=== PATIENT | male | born 1955 | race Two or more races ===

== ENCOUNTER 2022-10-04 15:02 | Emergency (ER) | payer MEDICARE, SELFPAY ==
[2022-10-04 15:03] VITALS: BP 168/62; PULSE 50; RESP 16; TEMP 36.6; O2SAT 98; BMI 30.2
--- NOTE | 2022-10-04 15:36 | PC.NURSE ---
ROUNDED ON PATIENT, VITALS OBTAINED PATIENT WAITING IN TRIAGE ROOM AT THIS TIME AWAITING A ROOM IN ED.
[2022-10-04 15:37] VITALS: BP 168/62; PULSE 50; RESP 14; TEMP 36.6; O2SAT 98
--- NOTE | 2022-10-04 16:03 | XR_ITS ---
FINAL REPORT CLINICAL HISTORY: left foot pain, pt states woke up and left foot was swollen, no known injury COMPARISON: None FINDINGS: LEFT FOOT: Three views of the left foot were obtained. There is no acute fracture or dislocation. There is a mild hallux valgus deformity. There is degenerative change of the first MTP. Small calcaneal spurs are noted. There is forefoot soft tissue swelling. IMPRESSION: Degenerative change and soft tissue swelling without acute bony abnormality. Reviewed, Interpreted and Dictated by Reymundo Garcia III, MD Transcribed by Sofi Guerra Authenticated and [facility]
--- NOTE | 2022-10-04 16:07 | PC.NURSE ---
notified rad of xray order
--- NOTE | 2022-10-04 16:09 | ED_ITS ---
Discharge Plan Disposition Patient Disposition: Home, Self-Care Prescriptions Prescriptions: New doxycycline hyclate 100 mg tablet 100 mg PO BID Qty: 14 0RF Referrals Follow up/Referrals: Provider,Referral, MD [Primary Care Provider] - See instructions Activity Restrictions/Add. Instructions Additional Instructions/Restrictions: Return for worsening pain swelling or any other concerns within the next 8 hours otherwise follow-up with your primary care physician within the next few days Clinical Impressions Clinical Impression: Cellulitis Discharge ED Provider: Salas Ramsey General Adult HPI General Chief complaint: PAIN Stated complaint: feet swelling Time Seen by Provider: 10/04/22 15:05 History of Present Illness HPI narrative: 66-year-old male presents with left foot pain redness and swelling for 1 day. He says he woke up for that. No fever no chills no abdominal pain nausea vomiting headache chest pain or any other emergent issues at this time. No history of gout. No trauma or injury. Redness is up to the midfoot. Related Data Previous Rx's Medication Instructions Recorded doxycycline hyclate 100 mg tablet 100 mg PO BID #14 tabs 10/04/22 Allergies Allergy/AdvReac Type Severity Reaction Status Date / Time NO KNOWN ALLERGIES Allergy Uncoded 03/11/17 15:32 [facility] Disclaimer: The information contained in this section may have been updated after the patient was seen, as this information can be updated by other users. Social History Smoking Status: Never smoker alcohol intake: current current occupational status: employed Travel in the last 8 weeks: Inside the [place] ROS Obtained: Yes All systems reviewed & no additional complaints except as d ocumented Constitutional Constitutional: Denies fatigue, Denies fever(s) and Denies headache(s) Eyes Eyes: Denies diplopia ENT Ears, Nose, Mouth, and Throat: Denies headache(s) Cardiovascular Cardiovascular: Denies diaphoresis and Denies dyspnea Respiratory Respiratory: Denies dyspnea Gastrointestinal Gastrointestingal: Denies coffee ground emesis Genitourinary Male Genitourinary: Denies flank pain Musculoskeletal Musculoskeletal: Denies joint swelling Integumentary/Breasts Skin/Breast: Reports redness and Denies rash Neurologic Neurologic: Denies headache(s) Endocrine Endocrine: Denies fatigue Hematologic/Lymphatic Henatologic/Lymphatic: Denies easy bleeding Allergic/Immunologic Allergic/Immunologic: Denies urticaria Physical Exam General General appearance: alert and in no apparent distress Eye Eye exam: Present PERRL and EOMI ENT ENT exam: Present normal exam and normal oropharynx Neck Neck exam: Present normal inspection Chest Chest inspection: Present symmetric chest wall rise Respiratory Respiratory exam: Present normal lung sounds bilaterally; Absent respiratory distress Cardiovascular Cardiovascular exam: Present regular rate and normal rhythm Abdominal Exam Abdominal exam: Present soft; Absent distention, tenderness, guarding, rebound, Rodas's sign or tenderness at McBurney's Point Rectal Exam Rectal exam: Present deferred Extremities Exam Extremities exam: Present other (Left midfoot redness mild swelling and warmth neurovascularly intact) Back Exam Back exam: Present normal inspection Neurological Exam Neurological exam: Present alert and oriented X3 Psychiatric Psychiatric exam: Present normal affect and normal mood Skin Skin exam: Present warm, dry and intact Lymphatic Lymphatic Findings: no adenopathy Medical Decision Making Medical Records Medical records reviewed: Yes I reviewed the patient's medical records. Khanh Inquiry Pt receiving controlled substance: No Khanh was queried for this patient: No Vital Signs: 10/04/22 15:37 10/04/22 15:03 Temperature 97.8 F 97.8 F Temperature Source Oral Oral Pulse Rate 50 L Pulse Rate [Left Radial] 50 L Respiratory Rate 14 16 Blood Pressure 168/62 H Blood Pressure [Right Arm] 168/62 H Blood Pressure Mean [Right Arm] 97 Blood Pressure Source [Right Arm] Automatic Cuff Blood Pressure Position [Right Arm] Sitting 02 Sat by Pulse Oximetry 98 98 Oxygen Delivery Method Room Air Room Air Lab Data Lab results reviewed: Yes I reviewed the patient's lab results. Lab Results 10/04/22 16:13: WBC 9.8, RBC 5.22, Hgb 15.2, Hct 46.0, MCV 88.0, MCH 29.1, MCHC 33.1, RDW 13.6, Plt Count 219, MPV 8.3, Neut % (Auto) 82.5 H, Lymph % (Auto) 11.5, [place] % (Auto) 5.2, Eos % (Auto) 0.7, Baso % (Auto) 0.2, Neut # (Auto) 8.0 H, Lymph # (Auto) 1.1, [place] # (Auto) 0.5, Eos # (Auto) 0.1, Baso # (Auto) 0.0, Sodium 137, Potassium 4.9, Chloride 104, Carbon Dioxide 26, Anion Gap 11.9, BUN 18, Creatinine 1.20, Estimated Creat Clear 69, Estimated GFR 60, Est GFR ( Amer) 73, Glucose 157 H, Uric Acid 8.5, Calcium 9.4, Total Bilirubin 0.8, AST 31, ALT 26, Alkaline Phosphatase 85, Total Protein 8.0, Albumin 4.6, Globulin 3.4 H, Albumin/Globulin Ratio 1.4 10/04/22 16:13 10/04/22 16:13 Orders (Tests/Meds): ORDERS Category Date Time Status Foot XR left minimum 3 views [XR foot LT min 3V] Stat Exams 10/04/22 16:03 Completed Complete Blood Count Auto Diff Stat Lab 10/04/22 16:13 Completed Comprehensive Metabolic Panel Stat Lab 10/04/22 16:13 Completed Uric Acid Stat Lab 10/04/22 16:13 Completed Medical Decision Narrative: 58-year-old female presents with left foot redness that began today. No concern for sepsis necrotizing soft tissue infection or other emergent pathology at this time. Screening x-ray to assess for trauma versus osteomyelitis. Besides infection possible etiology could include gout or other arthropathy. Sending uric acid white blood cell count and creatinine for further assessment Uric acid 8.5 within normal limits. X-ray without concerning findings. Plan to treat for possible cellulitis and discharge home Critical Care Time Critical Care Time Critical Care Time: No Attestation: On 10/04/22, the high probability of a clinically significant, sudden or life threatening deterioration of the following system(s) required my full and direct attention, intervention and personal management. The time I documented below is in addition to time spent performing reported procedures but includes the following listed in this critical care notation.
[2022-10-04 16:24] LABS: Basophils % 0.2 % (0.1-2.0); Eosinophils # 0.1 K/mm3 (0.0-0.4); Eosinophils % 0.7 % (0.1-12.0); Hemoglobin 15.2 g/dL (14.1-18.0); Lymphocytes # 1.1 K/mm3 (0.7-4.5); Lymphocytes % 11.5 % (10-50); Mean Corpuscular HGB Conc 33.1 g/dL (31.8-35.4); Mean Corpuscular Hemoglobin 29.1 pg (27.0-31.2); Mean Platelet Volume 8.3 fl (7.4-10.4); Monocytes # 0.5 K/mm3 (0.1-1.0); Monocytes % 5.2 % (1.7-9.3); Neutrophils % 82.5 % (37.0-80.0); Platelet Count 219 K/mm3 (142-424); Red Blood Count 5.22 M/mm3 (4.60-6.20); Red Cell Distribution Width 13.6 % (11.5-17.5); White Blood Count 9.8 K/mm3 (4.8-10.8)
[2022-10-04 16:30] LABS: Uric Acid 8.5 mg/dl (3.5-8.5)
[2022-10-04 16:31] LABS: Alanine Aminotransferase 26 U/L (12-78); Albumin Level 4.6 g/dl (3.5-5.0); Albumin/Globulin Ratio 1.4 (1.1-1.8); Alkaline Phosphatase 85 U/L (38-126); Anion Gap 11.9 mEq/L (5-15); Aspartate Amino Transferase 31 U/L (17-59); Bilirubin,Total 0.8 mg/dl (0.2-1.3); Blood Urea Nitrogen 18 mg/dl (9-20); Calcium 9.4 mg/dl (8.4-10.2); Carbon Dioxide 26 mmol/L (22.0-30.0); Chloride 104 mmol/L (98-107); Creatinine Clearance Estimated 69 mL/min (50-200); Estimated Glomerular Filt Rate 60 ml/min (>60); GFR (African American) 73 ML/MIN (>60); Globulin 3.4 g/dL (1.3-3.2); Glucose 157 mg/dl (74-100); Potassium 4.9 mmoL/L (3.5-5.1); Sodium 137 mmol/L (136-145)
[2022-10-04 17:16] VITALS: BP 152/92; PULSE 69; RESP 17; TEMP 36.7; O2SAT 98
== END 2022-10-04 17:18 | disposition home or self-care (01) ==
PROVIDERS: Emergency Provider Emergency Medicine
DX: L03.116 Cellulitis of left lower limb (principal); M79.672 Pain in left foot
CPT/HCPCS: 36415; 73630; 80053; 84550; 85025; 99284; 99285

== ENCOUNTER 2025-02-07 14:51 | Inpatient (IN) | payer MEDICARE, SELFPAY ==
[2025-02-07] VITALS (20 sets, daily range): BP systolic 100–156; BP diastolic 58–97; PULSE 35–84; RESP 18–24; TEMP 36.4–37.7; O2SAT 95–100; BMI 27.3
--- NOTE | 2025-02-07 14:49 | ECG_ITS ---
APPROVED REPORT Exam: Resting ECG HR:53 bpm ECG Measurements Heart Rate 53 AXES QRSd 150 QRS 116 QT 501 T -18 QTc 483 Conclusion SINUS RHYTHM WITH HIGH GRADE AV BLOCK INTRAVENTRICULAR CONDUCTION DELAY [130+ ms QRS DURATION] CRITICAL TEST RESULT UNCONFIRMED REPORT Electronically signed by : Calos Connor, 02/08/2025 15:00:42
--- NOTE | 2025-02-07 14:54 | PC.NURSE ---
1444- patient arrival to room 4 1446- patient wallet found, license used to identify patient. 1447- BGL 177 1449- 18G LAC 1454- 100 Succ given, 30etomidate given to intubate patient by Leoncio Nieves, EDMOND 1456- Pt intubated by dr. christensen 24 at the teeth, 7.5 et tube. Positive color change, equal chest rise/breath sounds. 1457- 1 mg of atropine by Leoncio Nieves rn per dr. christensen order BP 142/75, HR 46, o2 100%, RR 17
[2025-02-07 14:57] LABS: VBG HCO3 14.7 mmol/L (23-30); VBG PCO2 29.8 mmol/L (35-51); VBG PH 7.31 mmol/L (7.31-7.41); VBG PO2 67.3 mmol/L (28-40)
[2025-02-07 14:58] LABS: Lactate Venous 5.5 mmol/L (0.4-2.0)
--- NOTE | 2025-02-07 15:02 | CT_ITS ---
FINAL REPORT TECHNIQUE: NASCET technique utilized for stenosis evaluation. CLINICAL HISTORY: cardiac arrest FINDINGS: Patient is intubated. RIGHT CAROTID: There is a bovine arch present. No significant stenosis is seen of the cervical common or internal carotid artery. LEFT CAROTID: No significant stenosis seen of the cervical common or internal carotid artery. VERTEBRALS: The vertebrals are patent. No significant stenosis is present. IMPRESSION: No significant arterial abnormality. Reviewed, Interpreted and Dictated by Gautam Moctezuma MD Transcribed by Dalila Alvarez Authenticated and [facility]
--- NOTE | 2025-02-07 15:02 | CT_ITS ---
FINAL REPORT TECHNIQUE: Postcontrast axial images of the chest were performed in a CTA protocol. This study was performed with techniques to keep radiation doses as low as reasonably achievable, (ALARA). Individualized dose reduction technique using automated exposure control or adjustment of mA and/or kV according to the patient's size were employed. CLINICAL HISTORY: cardiac arrest FINDINGS: There is an ET tube in good position. The heart is normal in size. No adenopathy is identified. No pleural or pericardial effusion is identified. The thoracic aorta is normal in caliber with no focal aneurysm or dissection identified. There is no filling defect to suggest pulmonary embolism. Patchy bibasilar consolidation is seen, left greater than right with overlying atelectasis. There is no pneumothorax. The images of the upper abdomen are unremarkable. IMPRESSION: No evidence for PE on this exam. ET tube in good position. No pneumothorax. Patchy bibasilar consolidation with overlying atelectasis. Reviewed, Interpreted and Dictated by Gautam Moctezuma MD Transcribed by Dalila Alvarez Authenticated and [facility]
--- NOTE | 2025-02-07 15:02 | CT_ITS ---
FINAL REPORT TECHNIQUE: Axial CT images were performed through the head. Coronal reformatted images were submitted. This study was performed with techniques to keep radiation doses as low as reasonably achievable (ALARA). Individualized dose reduction techniques using automated exposure control or adjustment of mA and/or kV according to the patient's size were employed. CLINICAL HISTORY: cardiac arrest FINDINGS: There is localized encephalomalacia in the posterior left frontal lobe. The ventricles are normal in size. There is no evidence of hemorrhage. There is no mass or edema identified. There is no abnormal extra-axial fluid seen. The sinuses are well aerated. There is a scalp hematoma posteriorly overlying the left occipital region measuring 4.7 x 1.0 cm. No underlying fracture is seen. IMPRESSION: No acute intracranial process. Reviewed, Interpreted and Dictated by Gautam Moctezuma MD Transcribed by Dalila Alvarez Authenticated and [facility]
--- NOTE | 2025-02-07 15:02 | CT_ITS ---
FINAL REPORT TECHNIQUE: thin section axial CT with and without IV contrast supplemented with multiplanar 3-D reconstruction of the head. This study was performed with techniques to keep radiation doses as low as reasonably achievable, (ALARA)individualized dose reduction techniques using automated exposure control or adjustment of mA and/or kV according to the patient's size were employed. CLINICAL HISTORY: cardiac arrest FINDINGS: HEAD CT: Head is asymmetrically positioned in the gantry which somewhat limits exam sensitivity. The ventricles are normal in size. There is no evidence of hemorrhage. No masses are identified. No extra-axial fluid is seen. The sinuses are normal. CTA: The cranial circulation is unremarkable. There is no significant stenosis, aneurysm or occlusion. IMPRESSION: No acute process. Reviewed, Interpreted and Dictated by Gautam Moctezuma MD Transcribed by Dalila Alvarez Authenticated and . [facility]
[2025-02-07] MEDS: ETOMIDATE 40MG/20ML VIAL 30 MG IV (15:07)
[2025-02-07] MEDS: SUCCINYLCHOLINE 20MG/ML 10 ML MDV 100 MG IV (15:08)
[2025-02-07] MEDS: ATROPINE 1MG/10ML SYRINGE (CRASH CART) 1 MG IV (15:09)
--- NOTE | 2025-02-07 15:09 | HMH.EDGENADL ---
Discharge Plan Disposition Chief Complaint: Cardiac Arrest/CPR Prescriptions Prescriptions: No Action doxycycline hyclate 100 mg tablet 100 mg PO BID Qty: 14 0RF Referrals Follow up/Referrals: Provider,Referral, [Primary Care Provider, Medical] - See instructions Clinical Impressions Clinical Impression: Cardiac arrest, V-tach, Ventricular fibrillation Print Language Print Language: Serbian Discharge ED Provider: Jay Connor General Adult HPI General Chief complaint: Cardiac Arrest/CPR Stated complaint: Unresponsive Time Seen by Provider: 02/07/25 14:55 Mode of Arrival: EMS Source of Information: EMS Description of Symptoms (Recalled from ER Triage Doc. by RN): Pt arrives via EMS from [employer]. Pt had a witnessed cardiac arrest. CPR was initiated by bystanders. Pt was down for 5-10 mins. Initial cardiac rhythm was pulseless v-tach, patient was shocked 3 times. ROSC was obtained by patient arrival to [facility]. I/O in place, supraglottic airway in place. History of Present Illness HPI narrative: Patient is a 69-year-old brought in by EMS with cardiac arrest. We do not know anything about the patient's history as he had a witnessed arrest from bystanders who do not know anything about them either CPR was immediately initiated on scene by bystanders and performed for 5 or 10 minutes EMS arrived to scene patient was in V-fib which shocked subsequently in V. tach and shocked again with return of spontaneous circulation 1 round of ACLS was performed supraglottic airway was placed no further history able to be obtained prior to arrival patient arrived with a pulse and blood pressure. Related Data Previous Rx's ?Medication ?Instructions ?Recorded doxycycline hyclate 100 mg tablet 100 mg PO BID #14 tabs 10/04/22 Allergies Allergy/AdvReac Type Severity Reaction Status Date / Time NO KNOWN ALLERGIES Allergy Uncoded 03/11/17 15:32 [facility] Disclaimer: The information contained in this section may have been updated after the patient was seen, as this information can be updated by other users. Social History (Updated 10/04/22 @ 17:10 by Salas Ramsey MD) Smoking Status: Unknown if ever smoked alcohol intake: current current occupational status: employed Travel in the last 8 weeks?: Inside the [place] Have you lived/traveled outside US in past 30 days?: No Contact w/someone who lives/traveled outside US past 30 days?: No Exposure to someone with infectious disease in past 14 days?: No Do you have a fever (greater than 100.4 F or 38 C)?: No Have you tested positive for COVID-19?: No Exposed to someone with COVID-19 in past 14 days?: No Do you have a sore throat?: No Do you have a cough?: No Do you have any weakness?: No Do you have any diarrhea?: No Are you experiencing any unusual bleeding?: No Do you have any muscle aches/pain?: No Do you have any abdominal pain?: No Are you experiencing loss of taste or smell?: No ROS Obtained: Yes All systems reviewed & no additional complaints except as documented Physical Exam General General appearance: other (Intubated with supraglottic airway) Respiratory Respiratory exam: Present normal lung sounds bilaterally Cardiovascular Cardiovascular exam: Present regular rate Neurological Exam Neurological exam: Present other (Patient is waking up eyes open does not following with his eyes not localizing any painful stimuli or withdrawing from painful stimuli patient is currently intubated) Expanded Neurological Exam Coma scale eye opening: Spontaneous Coma scale motor response: None Coma scale verbal response: None Coma scale total: 6 Medical Decision Making Medical Records Screening: Per USPSTF and CDC recommendations, given the prevalence of disease in our region, it is our hospital?s policy to screen for HIV and viral Hepatitis for all patients aged 18 and over and those with ongoing risk factors. Khanh Inquiry Pt receiving controlled substance: No Vital Signs: 02/07/25 14:48 02/07/25 14:56 02/07/25 15:00 Temperature 98.0 F Temperature Source Temporal Artery Scan Pulse Rate Pulse Rate [Right] 44 L Respiratory Rate 21 24 Blood Pressure Blood Pressure [Right Arm] 156/97 H Blood Pressure Mean [Right Arm] 116 Blood Pressure Source Blood Pressure Position 02 Sat by Pulse Oximetry 99 100 97 Oxygen Delivery Method Trach Collar/ Tube Fraction of Inspired Oxygen 60 02/07/25 15:11 Temperature Temperature Source Pulse Rate 40 L Pulse Rate [Right] Respiratory Rate 20 Blood Pressure 133/80 Blood Pressure [Right Arm] Blood Pressure Mean [Right Arm] Blood Pressure Source Automatic Cuff Blood Pressure Position Supine 02 Sat by Pulse Oximetry 95 Oxygen Delivery Method Trach Collar/ Tube Fraction of Inspired Oxygen Lab Data Lab Results 02/07/25 14:50: WBC 11.9 H, RBC 4.95, Hgb 14.8, Hct 43.9, MCV 88.7, MCH 29.9, MCHC 33.7, RDW 12.5, Plt Count 220, MPV 11.2 H, Neut % (Auto) 53.8, Lymph % (Auto) 37.6, [place] % (Auto) 4.9, Eos % (Auto) 1.4, Baso % (Auto) 0.4, Neut # (Auto) 6.4, Lymph # (Auto) 4.5, [place] # (Auto) 0.6, Eos # (Auto) 0.2, Baso # (Auto) 0.1, Sodium 139, Potassium 3.4 L, Chloride 106, Carbon Dioxide 20 L, Anion Gap 16.4 H, BUN 19, Creatinine 1.20, Estimated Creat Clear 65, Estimated GFR 60, Est GFR ( Amer) 72, Glucose 167 H, Calcium 8.9, Total Bilirubin 1.0, AST 145 H, ALT 120 H, Alkaline Phosphatase 89, Troponin I 0.08 H, Total Protein 7.7, Albumin 4.7, Globulin 3.0, Albumin/Globulin Ratio 1.6 02/07/25 14:55: VBG pH 7.31, VBG pCO2 29.8 L, VBG pO2 67.3 H, VBG HCO3 14.7 L, VBG Total CO2 15.7 L, VBG O2 Saturation 92.0 H, VBG Base Excess -11.5 L, VBG Lactic Acid 5.5 H 02/07/25 14:50 02/07/25 14:50 Orders (Tests/Meds): ED MEDICATIONS Generic Name Dose Route Start Last Admin Trade Name Freq PRN Reason Stop Dose Admin Fentanyl Citrate 12.5 mcg 02/07/25 15:08 Fentanyl 12.5mcg/0.25ml IV 03/09/25 15:07 [id number] PRN Achieve CPOT Score <3 Lactated Ringer's 1,000 mls @ 999 mls/hr 02/07/25 15:15 02/07/25 15:10 Lactated Ringer's 1000 Ml Bag IV 02/07/25 16:15 999 mls/hr .Q1H1M JUDY Administration Fentanyl Citrate 1,000 mcg/ 100 mls @ 2.5 mls/hr 02/07/25 15:15 02/07/25 15:32 Sodium Chloride IV 03/09/25 15:14 25 mcg/hr .Q24H JUDY 2.5 mls/hr Protocol Administration 25 MCG/HR Sodium Chloride 10 ml 02/07/25 15:26 02/07/25 15:27 Sodium Chloride 0.9% 10ml Syr (Rad Only) IV 03/09/25 15:25 10 ml NEEDED PRN Administration Maintain IV Site Discontinued Medications Generic Name Dose Route Start Last Admin Trade Name Shiloh PRN Reason Stop Dose Admin Atropine Sulfate 1 mg 02/07/25 15:06 02/07/25 15:09 Atropine 1mg/10ml Syringe (Crash Cart) IV 02/07/25 15:07 1 mg ONCE ONE Administration Diazepam 5 mg 02/07/25 15:12 02/07/25 15:10 Diazepam 10mg/2ml Syringe IV 02/07/25 15:13 5 mg ONCE ONE Administration Etomidate 30 mg 02/07/25 15:03 02/07/25 15:07 Etomidate 40mg/20ml Vial IV 02/07/25 15:04 30 mg ONCE ONE Administration Iopamidol 160 ml 02/07/25 15:26 02/07/25 15:27 Iopamidol-370 (76%);100ml Bottle IV 02/07/25 15:27 160 ml ONCE ONE Administration Sodium Chloride 50 ml 02/07/25 15:26 02/07/25 15:27 0.9 % Sodium Chloride 50 Ml Vial IV 02/07/25 15:27 50 ml ONCE ONE Administration Succinylcholine Chloride 100 mg 02/07/25 15:05 02/07/25 15:08 Succinylcholine 20mg/Ml 10 Ml Mdv IV 02/07/25 15:06 100 mg ONCE ONE Administration ORDERS Category Date Time Status CT angio chest PE protocol Stat Cat Scan 02/07/25 15:[address] angio head Stat Cat Scan 02/07/25 15:[address] angio neck Stat Cat Scan 02/07/25 15:[address] head/brain wo con Stat Cat Scan 02/07/25 15:02 Taken CBC w/Auto Diff [Complete Blood Count Auto Diff] Stat Lab 02/07/25 14:50 Completed CMP [Comprehensive Metabolic Panel] Stat Lab 02/07/25 14:50 Completed PT/PTT Stat Lab 02/07/25 14:50 Received Trop I [Troponin I] Stat Lab 02/07/25 14:50 Completed Troponin I Q3H Lab 02/07/25 18:15 Ordered Troponin I Q3H Lab 02/07/25 21:15 Ordered VBG [Venous Blood Gas] Stat RT 02/07/25 14:55 Completed Venous Blood Gas Routine RT 02/07/25 15:00 Received Medical Decision Narrative: Patient with above history and physical arrived after cardiac arrest with a shockable rhythm confirmed with rhythm strips that were printed out with V-fib and V. tach. Most likely a cardiac event. Patient is bradycardic from a ventricular standpoint and repeat twelve-lead shows ventricular rate of 53 with high-grade AV block possibly with complete heart block atrial flutter is present no obvious STEMI noted. Patient's not doing much neurologically but is waking up which is good prognostically also blood gas showed a pH is near 7.3 which is excellent. Differential includes complete heart block with a bradycardic event STEMI with reperfusion pulmonary embolism stroke etc. Will get quick scans after discussing the case with Dr. Craig likely will take the patient to the [facility] shortly. Patient was intubated and supraglottic airway was transition to an endotracheal tube. 7-1/2 tube was placed please see intubation note. Reassessment 340 CT scans of the head neck and chest were performed I personally interpreted specifically I do not see any evidence of an LVO intracranial hemorrhage or large central PE. I discussed the case further with Dr. Craig who will take the patient to the [facility] for a transvenous pacer as well as for angiogram to see if there is anything obvious going on with regards to other vascular pathology. Working diagnosis is most likely a bradycardic rhythm sent into cardiac arrest secondary to complete heart block. Procedures Intubation Mallampati Score:: Class I Time out performed: No sedative: Etomidate Mg Given: 30 paralytic: Succinylcholine Mg Given: 150 Laryngoscope: Kartik (3) Assist Device Used: other (MAG3 GlideScope) ET Tube Size: 7.5 ET Tube Uncuffed: Yes Tube Secured Depth (cm): 22 Tube Secured Location: teeth Tube Placement Confirmation: visualized tube passing through cords, equal breath sounds bilaterally and confirmation by capnometry Patient Tolerated Procedure: no complications Critical Care Critical Care Time Critical Care Time: Yes Attestation: On 02/07/25, the high probability of a clinically significant, sudden or life threatening deterioration of the following system(s) required my full and direct attention, intervention and personal management. The time I documented below is in addition to time spent performing reported procedures but includes the following listed in this critical care notation. Total Time Total Critical Care Time: 65
[2025-02-07] MEDS: LACTATED RINGERS 1000ML 1,000 ML 999 ML IV (15:10)
[2025-02-07] MEDS: diazePAM 10MG/2ML SYRINGE 5 MG IV ×2 (15:10→15:39)
[2025-02-07 15:13] LABS: Albumin Level 4.7 g/dl (3.5-5.0); Chloride 106 mmol/L (98-107); Sodium 139 mmol/L (136-145)
[2025-02-07 15:14] LABS: Potassium 3.4 mmoL/L (3.5-5.1)
--- NOTE | 2025-02-07 15:14 | PC.NURSE ---
1509- temp sensing kennedy inserted by Laura Catherine under this RN's supervision, UA collected and sent to lab. 1510- 5mg given by Ayaan Melendez RN per Dr. Connor order 1515- Pt transferred to CT by De[facility] and RT on zoll monitor.
[2025-02-07 15:16] LABS: Alanine Aminotransferase 120 U/L (12-78); Albumin/Globulin Ratio 1.6 (1.1-1.8); Alkaline Phosphatase 89 U/L (38-126); Anion Gap 16.4 mEq/L (5-15); Aspartate Amino Transferase 145 U/L (17-59); Bilirubin,Total 1.0 mg/dl (0.2-1.3); Blood Urea Nitrogen 19 mg/dl (9-20); Carbon Dioxide 20 mmol/L (22.0-30.0); Creatinine Clearance Estimated 65 mL/min (50-200); Creatinine,Serum 1.20 mg/dl (0.66-1.25); Estimated Glomerular Filt Rate 60 ml/min (>60); GFR (African American) 72 ML/MIN (>60); Globulin 3.0 g/dL (1.3-3.2); Hematocrit 43.9 % (42.0-52.0); Hemoglobin 14.8 g/dL (14.1-18.0); Immature Granulocytes % 1.9 %; Mean Corpuscular HGB Conc 33.7 g/dL (31.8-35.4); Mean Corpuscular Hemoglobin 29.9 pg (27.0-31.2); Mean Corpuscular Volume 88.7 fl (80-94); Nucleated Red Blood Cells % 0 %; Platelet Count 220 K/mm3 (142-424); Red Blood Count 4.95 M/mm3 (4.60-6.20); Red Cell Distribution Width-SD 40.1 fL; Total Protein,Serum 7.7 g/dl (6.3-8.2); White Blood Count 11.9 K/mm3 (4.8-10.8)
[2025-02-07 15:17] LABS: Calcium 8.9 mg/dl (8.4-10.2); Glucose 167 mg/dl (74-100)
[2025-02-07] MEDS: SODIUM CHLORIDE 0.9% 10ML SYR (RAD ONLY) 10 ML IV (15:27)
[2025-02-07] MEDS: IOPAMIDOL-370 (76%);100ML BOTTLE 160 ML IV (15:27)
[2025-02-07] MEDS: 0.9 % SODIUM CHLORIDE 50 ML VIAL IV (15:27)
[2025-02-07 15:28] LABS: Troponin I 0.08 ng/ml (0.00-0.034)
[2025-02-07 15:29] LABS: Activated Partial Thrombo Time 25.7 seconds (22.8-30.6); INR 1.07 (0.9-1.1); Prothrombin Time 11.8 seconds (10.1-12.5)
[2025-02-07] MEDS: FENTANYL CITRATE/PF 1,000 MCG in 0.9 % SODIUM CHLORIDE 80 ML 2.5 MCG IV (15:32)
--- NOTE | 2025-02-07 15:38 | IR_ITS ---
APPROVED REPORT Patient Location: [facility] Coordinator: RADHA Vega RT (R) PROCEDURES Left heart catheterization Left ventriculogram Selective coronary angiogram Right femoral vein central access Placement of temporary transvenous pacemaker into the right ventricular apex INDICATION Sudden cardiac survivor, Third-degree heart block, Bradycardia Informed consent was obtained prior to the procedure. COMPLICATIONS None TECHNIQUE 1% lidocaine used anesthetize the right groin the right femoral artery and vein were accessed via the Salinger technique and a 4 German 5 German sheath were placed in the artery vein respectively. A temporary transvenous pacemaker was floated under fluoroscopic guidance into the right ventricular apex and placed in the apex. Pacemaker was placed at a heart rate of 80. The RV was capturing at 2 mV therefore the pacemaker was placed at 4 mV with a rate of 80. Following this the JL 4 JR4 catheter used to perform selective coronary angiography. At the end of the procedure both sheaths were taped into place patient was transferred to the intensive care unit in guarded condition. INTERROGATION Angiographic results Left main artery is normal Left anterior descending artery has mild 10% luminal regularities in the proximal and mid vessel Circumflex artery is normal Right coronary artery is dominant and has proximal 20% stenosis with a mid vessel concentric 40% stenosis NARANJO ventriculogram not performed LVEDP not measured IMPRESSION Nonocclusive coronary artery disease with moderate disease in the mid dominant right coronary artery Successful placement of temporary transvenous pacemaker into the right ventricular apex PLAN 1. Start heparin drip overnight 2. Keep right femoral sheath in place for blood gas and monitoring blood pressure 3. Maintain transcutaneous temporary pacemaker as backup in the event the transvenous pacemaker dislodges 4. Keep sedate overnight 5. 1 g vancomycin IV this evening 6. Plan AICD placement in the morning due to sudden cardiac survivor 7. Will also plan KIMMY following AICD placement and if left atrial appendage is clear we will plan to cardiovert to maintain sinus rhythm 8. LDL less than 55 to be achieved with high intensity statin Electronically signed by : Lan Craig MD 02/07/2025 17:03:39
--- NOTE | 2025-02-07 15:40 | PC.NURSE ---
1539 5mg valium given by this rn Per dr. christensen order
--- NOTE | 2025-02-07 15:43 | PC.NURSE ---
Pt belongings placed into bag. Pt noted to have a watch, iphone, wallet, hat, snicker bar, pants, shirt, shoes, belt
[2025-02-07 15:46] LABS: ABG HCO3 16.4 mmhg (22.0-26.0); ABG PCO2 38.2 mmhg (35.0-45.0); ABG PH 7.25 mmol/L (7.35-7.45); ABG PO2 112.2 mmhg (80-100); ABG TCO2 17.5 mmhg (23-27)
[2025-02-07 15:47] LABS: Lactate Arterial 3.9 mmol/L (0.4-2.0)
--- NOTE | 2025-02-07 15:49 | PC.NURSE ---
1546 Dr. Craig to bedside. 1549 Pt transferred to optical laboratory manager by Lashae Stubbs RN and RT on zoll. Pt belongings sent with patient
[2025-02-07 16:15] LABS: ABG HCO3 17.1 mmhg (22.0-26.0); ABG PCO2 30.9 mmhg (35.0-45.0); ABG PH 7.36 mmol/L (7.35-7.45); ABG PO2 109.2 mmhg (80-100); ABG TCO2 18.1 mmhg (23-27); PEEP 5
[2025-02-07 16:16] LABS: Source ART LINE
--- NOTE | 2025-02-07 16:51 | EXP.HP ---
History of Present Illness *Admission Date: 02/07/25 *Reason for visit:: cardiac arrest *History of present illness: 69-year-old male who had a witnessed arrest at [employer]. Resuscitation was performed for about 10 minutes. Received 2-3 shocks from defibrillator. Intubated prior to arrival. Had supraglottic airway. Found to be bradycardic. Taken urgently to Technical Research Scientist for evaluation of cardiac arrest and complete heart block. Discussed case with cardiology after procedure, patient currently has transvenous pacing for his heart block. Sedated and intubated at this time. Will need admission to ICU for further management. Remainder of history known as follows: Appears to have bioprosthetic aortic valve. Has scar on lower abdomen consistent with previous appendectomy. Unable to obtain any further history or review of systems. [facility] Disclaimer: The information contained in this section may have been updated after the patient was seen, as this information can be updated by other users. Social History (Updated 02/07/25 @ 19:30 by America Olea RN) Smoking Status: Unknown if ever smoked alcohol intake: current current occupational status: employed Travel in the last 8 weeks?: Inside the [place] Have you lived/traveled outside US in past 30 days?: No Contact w/someone who lives/traveled outside US past 30 days?: No Exposure to someone with infectious disease in past 14 days?: No Do you have a fever (greater than 100.4 F or 38 C)?: No Have you tested positive for COVID-19?: No Exposed to someone with COVID-19 in past 14 days?: No Do you have a sore throat?: No Do you have a cough?: No Do you have any weakness?: No Do you have any diarrhea?: No Are you experiencing any unusual bleeding?: No Do you have any muscle aches/pain?: No Do you have any abdominal pain?: No Are you experiencing loss of taste or smell?: No Review of Systems Review of Systems Review of systems:: unable to obtain (intubated) Meds Home Medications and Allergies Home Medications ?Medication ?Instructions ?Recorded ?Confirmed ?Type No Known Home Medications 02/07/25 02/07/25 History New Prescriptions to Start Prescriptions: Allergies Allergy/AdvReac Type Severity Reaction Status Date / Time NO KNOWN ALLERGIES Allergy Uncoded 03/11/17 15:32 Exam Data for Last 24 hours Vital signs and Labs for Last 24 Hours: Temp Pulse Resp BP Pulse Ox O2 Del Method FiO2 98.2 F 35 L 18 113/58 L 95 Mechanical Ventilation 60 02/07/25 15:49 02/07/25 15:49 02/07/25 15:49 02/07/25 15:49 02/07/25 15:11 02/07/25 15:49 02/07/25 15:00 Laboratory Results - last 24 hr 02/07/25 14:50: WBC 11.9 H, RBC 4.95, Hgb 14.8, Hct 43.9, MCV 88.7, MCH 29.9, MCHC 33.7, RDW 12.5, Plt Count 220, MPV 11.2 H, Neut % (Auto) 53.8, Lymph % (Auto) 37.6, [place] % (Auto) 4.9, Eos % (Auto) 1.4, Baso % (Auto) 0.4, Neut # (Auto) 6.4, Lymph # (Auto) 4.5, [place] # (Auto) 0.6, Eos # (Auto) 0.2, Baso # (Auto) 0.1, PT 11.8, INR 1.07, APTT 25.7, Sodium 139, Potassium 3.4 L, Chloride 106, Carbon Dioxide 20 L, Anion Gap 16.4 H, BUN 19, Creatinine 1.20, Estimated Creat Clear 65, Estimated GFR 60, Est GFR ( Amer) 72, Glucose 167 H, Calcium 8.9, Total Bilirubin 1.0, AST 145 H, ALT 120 H, Alkaline Phosphatase 89, Troponin I 0.08 H, Total Protein 7.7, Albumin 4.7, Globulin 3.0, Albumin/Globulin Ratio 1.6 02/07/25 14:55: VBG pH 7.31, VBG pCO2 29.8 L, VBG pO2 67.3 H, VBG HCO3 14.7 L, VBG Total CO2 15.7 L, VBG O2 Saturation 92.0 H, VBG Base Excess -11.5 L, VBG Lactic Acid 5.5 H 02/07/25 15:43: ABG pH 7.25 L, ABG pCO2 38.2, ABG pO2 112.2 H, ABG HCO3 16.4 L, ABG Total CO2 17.5 L, ABG O2 Saturation 98, ABG Base Excess -10.9 L, ABG Lactate 3.9 H 02/07/25 16:12: Specimen Source Art line, ABG pH 7.36, ABG pCO2 30.9 L, ABG pO2 109.2 H, ABG HCO3 17.1 L, ABG Total CO2 18.1 L, ABG O2 Saturation 98, ABG Base Excess -8.3 L, Bertin Test Patient unable, Vent Rate 20, Tidal Volume 440, PEEP 5 I & O for Last 24 hours: Intake & Output 02/04/25 02/05/25 02/06/25 02/07/25 23:59 23:59 23:59 23:59 Weight 81.647 kg Constitutional Constitutional: mild distress, average body habitus, chronically ill appearing and cooperative *Routine HEENT Exam Head: Present normocephalic Eye: Present EOMI and PERRL ENT: Present mucous membranes moist *Routine Neck Exam Neck: Present supple; Absent lymphadenopathy Routine Chest/Breast/Axilla Exam Comments: Well-healed sternal scar *Routine Respiratory Exam Respiratory: Present patient mechanically ventilated and CTA bilaterally; Absent rhonchi, wheezes or crackles *Routine Cardiovascular Exam Cardiovascular: Present RRR and murmur (Systolic) Comments: V-paced *Routine Abdominal Exam Abdominal: Present soft and normoactive bowel sounds; Absent tenderness *Routine Rectal Exam Rectal:: deferred *Routine Genitalia Exam Genitalia:: deferred *Routine Extremities Exam Extremities: Absent cyanosis, clubbing or edema Comments: 1 IV in left AC, puncture from IO in left fang *Routine Skin Exam Skin: Present intact and warm; Absent rash Comments: Scar right lower abdomen *Routine Neurological Exam Neurological: Present altered mental status (sedated) and moving all extremities (spontaneous) Assessment and Plan *Assessment and plan (1) Ventricular fibrillation: Status: Acute Category: Medical Code(s): I49.01 - Ventricular fibrillation (2) Cardiac arrest: Status: Acute Category: Medical Code(s): I46.9 - Cardiac arrest, cause unspecified (3) Complete heart block: Status: Acute Category: Medical Code(s): I44.2 - Atrioventricular block, complete (4) On mechanically assisted ventilation: Status: Acute Category: Medical Code(s): Z99.11 - Dependence on respirator [ventilator] status (5) NSTEMI (non-ST elevated myocardial infarction): Status: Acute Category: Medical Code(s): I21.4 - Non-ST elevation (NSTEMI) myocardial infarction (6) Atrial flutter: Status: Acute Category: Medical Code(s): I48.92 - Unspecified atrial flutter (7) History of aortic valve replacement with bioprosthetic valve: Status: Acute Category: Surgical Code(s): Z95.3 - Presence of xenogenic heart valve Plan Mr. Burns is a 69-year-old male who had a witnessed arrest at the grocery store. He was resuscitated by arrival to the ER. Found to be in complete heart block with NSTEMI. Patient taken urgently to the Technical Research Scientist for intervention with placement of transcutaneous pacer. Case discussed with ER physician and first grade teacher, request admission for further management after placement of pacemaker. I decided to admit to the ICU. Patient is currently intubated on mechanical ventilation, being externally paced, in critical condition. Sedated with propofol and fentanyl. High risk for decompensation and . Problems addressed as follows: Cardiac arrest due to ventricular fibrillation with complete heart block On mechanical ventilation Type II NSTEMI due to strain of the wrist and ischemia A-flutter Bioprosthetic aortic valve -Witnessed arrest. Achieved resuscitation. Found to be in heart block per review of EKG. Currently transvenous paced. Continue pacing at 80 bpm. Cardiology to reevaluate in the morning for placement of pacemaker and AICD - Plan for KIMMY in the morning - Will consider cardioversion with his A-flutter - Anticoagulate with Lovenox 1 mg/kg twice daily - Monitor on telemetry - Currently intubated on mechanical ventilation due to arrest. Will maintain mechanical ventilation due to need for KIMMY and placement of pacer/defibrillator in the morning. - Continue analgo-sedation with propofol and fentanyl. RASS goal -2 given placement of transvenous pacer and risk of dislodgment of patient has significant movement, currently on minimal settings. Pulmonology consulted to assist with care and management. Will consider attempting extubation after placement of pacemaker as patient has no appreciable underlying lung disease. - Initial troponin 0.08. Repeat troponin greater than 3. Consistent with NSTEMI from strain of her wrist. - Scans of chest showed no PE on CTA. Patient had normal pH of 7.3. - Vancomycin empirically to decrease risk for infection given indwelling trans venous pacer wires. - Initial labs with white count of 13, hemoglobin 14, likely D marginalization from the stress of his arrest. Kidney function normal with BUN 20, creatinine 1.0. Hemoglobin A1c 8.3, TSH normal at 2.9. Repeat CBC, CMP, magnesium ordered for the morning. Full code N.p.o. Therapeutic Lovenox
--- NOTE | 2025-02-07 18:09 | PC.NURSE ---
no PT consults placed at this time due to being on mechanical ventilation
--- NOTE | 2025-02-07 18:35 | PC.NURSE ---
Attempted to call patient's next of kin, no answer and no voicemail set up at this time.
[2025-02-07 18:39] LABS: Hematocrit 40.4 % (42.0-52.0); Hemoglobin 14.1 g/dL (14.1-18.0); Immature Granulocytes % 0.5 %; Mean Corpuscular HGB Conc 34.9 g/dL (31.8-35.4); Mean Corpuscular Hemoglobin 29.8 pg (27.0-31.2); Mean Corpuscular Volume 85.4 fl (80-94); Nucleated Red Blood Cells % 0 %; Platelet Count 166 K/mm3 (142-424); Red Blood Count 4.73 M/mm3 (4.60-6.20); Red Cell Distribution Width-SD 38.6 fL; White Blood Count 13.3 K/mm3 (4.8-10.8)
[2025-02-07 18:55] LABS: Anion Gap 11.3 mEq/L (5-15); Blood Urea Nitrogen 20 mg/dl (9-20); Calcium 9.1 mg/dl (8.4-10.2); Carbon Dioxide 19 mmol/L (22.0-30.0); Chloride 108 mmol/L (98-107); Creatinine Clearance Estimated 78 mL/min (50-200); Creatinine,Serum 1.00 mg/dl (0.66-1.25); Estimated Glomerular Filt Rate 74 ml/min (>60); GFR (African American) 89 ML/MIN (>60); Glucose 120 mg/dl (74-100); Potassium 4.3 mmoL/L (3.5-5.1); Sodium 134 mmol/L (136-145)
[2025-02-07 18:59] LABS: Reflex Lactic Add Lactic Reflex
[2025-02-07 19:03] LABS: PTT Heparin (inpatient only) 24.8 Seconds (50-75)
--- NOTE | 2025-02-07 19:10 | XR_ITS ---
PROCEDURE INFORMATION: Exam: XR Chest Exam date and time: 02/07/2025 7:22 PM Age: 69 years old Clinical indication: Device placement; Other: Et tube placement, post code TECHNIQUE: Imaging protocol: Radiologic exam of the chest. Views: 1 view. COMPARISON: CT ANGIO CHEST PE PROTOCOL 02/07/2025 3:26 PM FINDINGS: Tubes, catheters and devices: ET tube in good position. Lungs: Lungs are hypoinflated. Pleural spaces: Unremarkable. No pleural effusion. No pneumothorax. Heart/Mediastinum: Unremarkable. No cardiomegaly. Prior median sternotomy. Bones/joints: Prior median sternotomy. IMPRESSION: ET tube in good position. Lungs are hypoinflated.
[2025-02-07 19:23] LABS: Troponin I 3.15 ng/ml (0.00-0.034)
[2025-02-07 19:33] LABS: Lactic Acid Follow Up (RFLX 1) 1.3 mmol/L (0.7-2.1)
[2025-02-07 19:37] LABS: Hemoglobin A1C 5.3 % (4.0-6.0)
[2025-02-07 21:39] LABS: Thyroid Stimulating Hormone 2.92 uIU/mL (0.465-4.68)
[2025-02-07] MEDS: PANTOPRAZOLE 40MG VIAL 40 MG IV (21:44)
[2025-02-07] MEDS: FENTANYL CITRATE/PF 1,000 MCG in 0.9 % SODIUM CHLORIDE 80 ML 5 MCG IV (22:50)
--- NOTE | 2025-02-07 22:59 | PC.NURSE ---
At 2240- I called [facility], and spoke to Konstantin about an issue with the Fentanyl order. The previous shift had D/C the order that the titrate medication had been scanned on. The active order was listed as not given. [facility] (Konstantin) was able to fix the order however, the bag would not scan. It is charted the same bag is still running.
[2025-02-07] MEDS: IPRATROPIUM/ALBUTEROL 3 ML NEB IH (23:21)
[2025-02-08] VITALS (44 sets, daily range): BP systolic 88–137; BP diastolic 53–81; PULSE 63–89; RESP 16–24; TEMP 36.3–37.7; O2SAT 96–100; BMI 27.5
--- NOTE | 2025-02-08 | IR_ITS ---
APPROVED REPORT Patient Location: Inpatient Glass Lathe Operator: Jeferson Abad RT (R) PROCEDURES 1. Pocket formation for AICD. 2. Placement of atrial sensing and pacing coil into the right atrial appendage. 3. Placement of a ventricular sensing, pacing and shocking coil in the right ventricular apex. 4. Permanent AICD placement. 5. Removal of temporary transvenous pacemaker INDICATION Sudden cardiac survivor, Secondary prevention for ventricular fibrillation, Third-degree AV block, Patient had temporary transvenous pacemaker which required removal, Informed consent was obtained prior to the procedure. COMPLICATIONS None Estimated Blood Loss: Less than 10 mls TECHNIQUE 1% Lidocaine with epinephrine used to anesthetized the left anterior aspect of the chest. Scalpel was used to make the initial cutaneous incision while electrocautery was used to dissect down tinto the fascia. The fascia was lifted off the pectoralis muscle and digitally manipulated creating a pocket for the defibrillator. The patient was then placed in Trendelenburg position and the subclavian vein was accessed 2 times via the Selinger technique. A 8 Latvian sheath was placed under fluoroscopic guidance into the subclavian vein. The dilator was removed from the sheath. Using fluoroscopic guidance, the ventricular lead was placed into the right ventricular apex, screwed and secured into place. Electronic interrogation proved acceptable thresholds and voltage within the lead. Using 3-0 silk, the ventricular lead was then secured into place and sheath peeled away. A 6 Latvian fresh sheath and dilator was placed over the existing wire. Using fluoroscopic guidance, the atrial lead was then placed into the right atrial appendage and screwed and secured in place. Electrical interrogation demonstrated acceptable thresholds and voltage number. The atrial lead was then secured into place using 3-0 silk and sheath peeled away. 1 gram of Ancef was used to flush the pocket. All 3 leads were connected to generator and tested via computer. The defibrillator then secured to the fascia. Monocryl was used to close the subcutaneous layers while merlyn were used to close the cutaneous layer. A pressure dressing was placed and the patient was transferred to the postop holding area in stable condition for postoperative care. After the shocking coil was placed into the right ventricular apex and thresholds were obtained under fluoroscopic guidance the temporary transvenous pacemaker was removed from the right groin and right ventricular apex INTERROGATION Generator Model number: [id number] Generator Serial number: [id number] Atrial lead model number: [id number] Atrial lead serial number: [id number] P-wave: 2.1mV Impedance: 430ohms Threshold: 0.5V@0.5ms Right Ventricular lead model number: [id number] Right Ventricular lead serial number: [id number] R-wave: Impedance: 490ohms Threshold: 0.7V@0.5ms Pacing Parameters: Mode: DDDR Base/Max Track:60 ppm / 130 ppm No diaphragmatic stimulation at 10 volts. IMPRESSION 1. Successful pocket formation for AICD. 2. Successful placement of atrial sensing and pacing coil into the right atrial appendage. 3. Successful placement of a ventricular sensing, pacing and shocking coil in the right ventricular apex. 4. Successful permanent AICD placement. 5. Successful removal of temporary transvenous pacemaker PLAN 1. Post op wound care Electronically signed by : Lan Craig MD 02/09/2025 09:27:31
[2025-02-08] MEDS: VANCOMYCIN CONSULT REQUEST 1 EACH NOTAPPLIC (00:26)
[2025-02-08] MEDS: VANCOMYCIN/WATER FOR INJ (PEG) 1.75 GM/350 ML PIGGYBACK IV (01:32)
[2025-02-08 05:43] LABS: Hematocrit 41.4 % (42.0-52.0); Hemoglobin 13.6 g/dL (14.1-18.0); Immature Granulocytes % 0.4 %; Mean Corpuscular HGB Conc 32.9 g/dL (31.8-35.4); Mean Corpuscular Hemoglobin 28.7 pg (27.0-31.2); Mean Corpuscular Volume 87.3 fl (80-94); Nucleated Red Blood Cells % 0 %; Platelet Count 158 K/mm3 (142-424); Red Blood Count 4.74 M/mm3 (4.60-6.20); Red Cell Distribution Width-SD 41.1 fL; White Blood Count 10.2 K/mm3 (4.8-10.8)
[2025-02-08 05:54] LABS: Alanine Aminotransferase 115 U/L (12-78); Albumin Level 4.1 g/dl (3.5-5.0); Albumin/Globulin Ratio 1.6 (1.1-1.8); Alkaline Phosphatase 82 U/L (38-126); Anion Gap 12.2 mEq/L (5-15); Aspartate Amino Transferase 124 U/L (17-59); Bilirubin,Total 0.7 mg/dl (0.2-1.3); Blood Urea Nitrogen 23 mg/dl (9-20); Calcium 8.7 mg/dl (8.4-10.2); Carbon Dioxide 18 mmol/L (22.0-30.0); Chloride 111 mmol/L (98-107); Creatinine Clearance Estimated 72 mL/min (50-200); Creatinine,Serum 1.10 mg/dl (0.66-1.25); Estimated Glomerular Filt Rate 66 ml/min (>60); GFR (African American) 80 ML/MIN (>60); Globulin 2.5 g/dL (1.3-3.2); Glucose 128 mg/dl (74-100); Magnesium 2.3 mg/dl (1.6-2.3); Potassium 4.2 mmoL/L (3.5-5.1); Sodium 137 mmol/L (136-145); Total Protein,Serum 6.6 g/dl (6.3-8.2)
[2025-02-08 06:11] LABS: ABG HCO3 18.7 mmhg (22.0-26.0); ABG PCO2 30.6 mmhg (35.0-45.0); ABG PH 7.40 mmol/L (7.35-7.45); ABG PO2 143.2 mmhg (80-100); ABG TCO2 19.6 mmhg (23-27)
[2025-02-08 06:17] LABS: PEEP 5
[2025-02-08 06:18] LABS: Source ART LINE
[2025-02-08] MEDS: IPRATROPIUM/ALBUTEROL 3 ML NEB IH ×3 (06:25→23:43)
--- NOTE | 2025-02-08 07:35 | EXP.PHA.CONS ---
Pharmacy Consult Date: 02/08/25 Time: 07:35 Referring provider: DR. BARFIELD Reason for Consult:: VANCOMYCIN DOSING Allergies Allergy/AdvReac Type Severity Reaction Status Date / Time No Known Allergies Allergy Unverified 02/08/25 07:15 Home Medications ?Medication ?Instructions ?Recorded ?Confirmed ?Type No Known Home Medications 02/07/25 02/07/25 History New Prescriptions to Start Prescriptions: Height: 1.73 m Weight: 82.4 kg Laboratory Results:: Laboratory Results - last 24 hr 02/07/25 14:50: WBC 11.9 H, RBC 4.95, Hgb 14.8, Hct 43.9, MCV 88.7, MCH 29.9, MCHC 33.7, RDW 12.5, Plt Count 220, MPV 11.2 H, Neut % (Auto) 53.8, Lymph % (Auto) 37.6, [place] % (Auto) 4.9, Eos % (Auto) 1.4, Baso % (Auto) 0.4, Neut # (Auto) 6.4, Lymph # (Auto) 4.5, [place] # (Auto) 0.6, Eos # (Auto) 0.2, Baso # (Auto) 0.1, PT 11.8, INR 1.07, APTT 25.7, Sodium 139, Potassium 3.4 L, Chloride 106, Carbon Dioxide 20 L, Anion Gap 16.4 H, BUN 19, Creatinine 1.20, Estimated Creat Clear 65, Estimated GFR 60, Est GFR ( Amer) 72, Glucose 167 H, Calcium 8.9, Total Bilirubin 1.0, AST 145 H, ALT 120 H, Alkaline Phosphatase 89, Troponin I 0.08 H, Total Protein 7.7, Albumin 4.7, Globulin 3.0, Albumin/Globulin Ratio 1.6 02/07/25 14:55: VBG pH 7.31, VBG pCO2 29.8 L, VBG pO2 67.3 H, VBG HCO3 14.7 L, VBG Total CO2 15.7 L, VBG O2 Saturation 92.0 H, VBG Base Excess -11.5 L, VBG Lactic Acid 5.5 H 02/07/25 15:43: ABG pH 7.25 L, ABG pCO2 38.2, ABG pO2 112.2 H, ABG HCO3 16.4 L, ABG Total CO2 17.5 L, ABG O2 Saturation 98, ABG Base Excess -10.9 L, ABG Lactate 3.9 H 02/07/25 16:12: Specimen Source Art line, ABG pH 7.36, ABG pCO2 30.9 L, ABG pO2 109.2 H, ABG HCO3 17.1 L, ABG Total CO2 18.1 L, ABG O2 Saturation 98, ABG Base Excess -8.3 L, Bertin Test Patient unable, Vent Rate 20, Tidal Volume 440, PEEP 5 02/07/25 18:27: WBC 13.3 H, RBC 4.73, Hgb 14.1, Hct 40.4 L, MCV 85.4, MCH 29.8, MCHC 34.9, RDW 12.4, Plt Count 166, MPV 10.7 H, Neut % (Auto) 82.3 H, Lymph % (Auto) 8.6 L, [place] % (Auto) 8.1, Eos % (Auto) 0.3, Baso % (Auto) 0.2, Neut # (Auto) 10.9 H, Lymph # (Auto) 1.1, [place] # (Auto) 1.1 H, Eos # (Auto) 0.0, Baso # (Auto) 0.0, APTT 24.8 L, Sodium 134 L, Potassium 4.3 D, Chloride 108 H, Carbon Dioxide 19 L, Anion Gap 11.3, BUN 20, Creatinine 1.00, Estimated Creat Clear 78, Estimated GFR 74, Est GFR ( Amer) 89 D, Glucose 120 H D, Hemoglobin A1c 5.3, Lactate 1.3, Calcium 9.1, Troponin I 3.15 H, TSH 2.92 02/08/25 05:07: WBC 10.2, RBC 4.74, Hgb 13.6 L, Hct 41.4 L, MCV 87.3, MCH 28.7, MCHC 32.9, RDW 13.0, Plt Count 158, MPV 11.4 H, Neut % (Auto) 83.9 H, Lymph % (Auto) 8.4 L, [place] % (Auto) 6.8, Eos % (Auto) 0.3, Baso % (Auto) 0.2, Neut # (Auto) 8.6 H, Lymph # (Auto) 0.9, [place] # (Auto) 0.7, Eos # (Auto) 0.0, Baso # (Auto) 0.0, Sodium 137, Potassium 4.2, Chloride 111 H, Carbon Dioxide 18 L, Anion Gap 12.2, BUN 23 H, Creatinine 1.10, Estimated Creat Clear 72, Estimated GFR 66, Est GFR ( Amer) 80, Glucose 128 H, Calcium 8.7, Magnesium 2.3, Total Bilirubin 0.7, AST 124 H, ALT 115 H, Alkaline Phosphatase 82, Total Protein 6.6, Albumin 4.1 D, Globulin 2.5, Albumin/Globulin Ratio 1.6 02/08/25 06:00: Specimen Source Art line, O2 % 50%, ABG pH 7.40, ABG pCO2 30.6 L, ABG pO2 143.2 H, ABG HCO3 18.7 L, ABG Total CO2 19.6 L, ABG O2 Saturation 99, ABG Base Excess -6.0 L, Bertin Test Patient unable, Vent Rate 18, Tidal Volume 440, PEEP 5 Assessment and Plan Assessment and plan all Dx Assessment and Plan for all problems:: Pharmacokinetic dosing service Objective: Patient: Floor: Age: 69 yo Serum creatinine: 1.10 mg/dL Height: 68.1 Inches Weight (kg): 82.4 Assessment: IBW (kg): 68.63 Dosing wt(kg): 82.4 Estimated Creatinine clearance (ml/min): 59.8 CRCL method: Cockcroft and Gault using ibw(default). Drug selected: Vancomycin Loading dose (mg): Vd (liters): 65.9 (factor used: 0.8 L/kg) Naveen (hr-1): 0.054 Half life (hrs): 12.84 CLvanco=?? 3.559 L/hr Recommended dose: 1500 mg Interval: 18 hrs Infusion time (hrs): 2.0 Predicted peak (mcg/mL): 34.7 Predicted trough (mcg/mL): 14.63 Total body weight is being used for vancomycin dosing. Recommendations: Give Vancomycin 1500 mg q 18 hrs with an expected Cpeak of 34.7 mcg/ml and an expected Ctrough of 14.63 mcg/ml AUC 0-24 /NATALIA Data: NATALIA 0.5 mcg/mL:?? AUC/NATALIA:? 1123.9 NATALIA 1.0 mcg/mL:?? AUC/NATALIA:? 562.0 --------- NATALIA 1.5 mcg/mL:?? AUC/NATALIA:? 374.6 NATALIA 2.0 mcg/mL:?? AUC/NATALIA:? 281.0 Thank you for the consult, will continue to follow. -JERI WHYTE, CLINTD
--- NOTE | 2025-02-08 07:38 | CA_ITS ---
APPROVED REPORT EXAM: Comprehensive 2D, Doppler, and color-flow Echocardiogram Director Of Operations For Therapy: Barbara Muñzi RCS, RVS Ht: 5 ft 8 in Wt: 181lbs BSA: 1.96 BP: 109/64 mmHg Indications: Prepacemaker implantation, AVR, Intubated, S/P CPR with temporary pacemaker 2D Dimensions IVSd 0.98 cm M: 0.6-1.2 LVEF (Visual) 62.00 % PWd 1.08 cm M: 0.6 - 1.2 LA Volume 95.80 mL LVDd 4.54 cm M: 4.2 - 5.9 LA Volume Index [id number] mL/m2 (M/F) 16-34 LVDs 3.03 cm M: 2.5 - 4.0 Left Atrium 3.52 cm M: 3.0 - 4.0 M-Mode Dimensions LA Diam 4.12 cm (1.9-4.0) LVDd 4.87 cm (3.5-5.7) LVDs 3.31 cm (3.5-5.7) EF (Teich) 60.00% EPSs 1.39 cm FS 32.00% EDV (Teich) 111.20 mL TAPSE 0.94 (<1.7) ESV (Teich) 44.50 mL LV Diastology E Decel Time 157 (160-240 msec) E/A Ratio 4.88 MED A' 8.00 cm/s LAT A' 4.10 cm/s Aortic Valve KENIA Index 0.34 cm2/m2 AoV Peak Srinivas. 226.0 (50-130 cm/s) AO Peak GR. 20.50 mmHg AO Mean GR. 11.30 (<5 mmHg) AO VTI 40.3 (18-25 cm) KENIA (VTI) 0.68 (2.5-4.5 cm2) Mitral Valve MV A Velocity 24.0 (40-130 cm/s) E/A Ratio 4.88 Pulmonary Valve PV Peak Velocity 82.0 (50-150 cm/s) NC End VMAX 192.0 cm/s Tricuspid Valve TR P. Velocity 340.00 cm/s RAP Estimate 10.00 mmHg TV Vmax 413.10 (30-100 cm/s) RVSP 56.30 mmHg Left Ventricle The left ventricle is normal size. Left ventricular systolic function is low-normal. There is increased left ventricular wall thickness. The septum is asynchronous. The left ventricular diastolic function is normal. LVEF is 50% Right Ventricle The right ventricle is normal size. The right ventricular systolic function is normal. Atria Left atrium is mildly dilated. Right atrium is mildly dilated. There is no color Doppler evidence of interatrial shunt. Aortic Valve s/p AVR. The prosthesis is well-seated. Peak velocity is 2.2 m/s. Mean AV gradient is 11 mmHg. Max AV gradient is 20 mmHg. Mild central aortic regurgitation is present. Mitral Valve The mitral valve is mildly thickened. No evidence of mitral valve stenosis. Trace mitral regurgitation is present. Tricuspid Valve The tricuspid valve leaflets are thin and pliable. Moderate tricuspid regurgitation. RVSP is 40-45 mmHg. Pulmonic Valve The pulmonary valve is grossly normal in structure. Mild pulmonic valve regurgitation is present. Great Vessels The aortic root is normal in size. IVC is normal in size and collapses >50% with inspiration. Pericardium There is no pericardial effusion. Other Information Study Quality: Technically Difficult Conclusion Low normal LV systolic function (LVEF 50%). Mild biatrial dilation. s/p AVR. The prosthesis is well-seated. Mild AI. Peak velocity is 2.2 m/s. Mean AV gradient is 11 mmHg. Max AV gradient is 20 mmHg. Moderate tricuspid regurgitation. RVSP is 40-45 mmHg. Mild PI. Electronically signed by : Norma Garcia MD 02/08/2025 23:56:24
--- OUTSIDE RECORDS SUMMARY | 2025-02-08 07:41 | XMS_ITS | Patient Health Record ---
[facility] Address [address] [facility] [address] [place] [id number] Care Team Providers Care Bar Host/Hostess Name Role Phone Anisa Ross Primary Care Provider Allergies No Known Allergies Reason For Referral No Information Medications Medication SIG (Take, Route, Fr equency, Duration) Notes Start Date End Date Status Meloxicam 7.5 MG TAKE 1 TABLET BY ILIANA TH EVERY DAY; Duration: 30 Active Immunizations Vaccine Route Administration Date Status Comme nts COVID 19 Pfizer Unknown 09/04/2020 Administered COVID 19 Pfizer Unknown 08/14/2020 Administered Problems No Known Problems Plan Of Treatment No Information Insurance Providers Payer Name Payer Address Payer Phone Subscriber Number Group Number Insured Name Patient Relationship to Insured Coverage Start Date Coverage End Date MEDICARE PART B [address] [address] [place] [id number] Jimmy Burns Self - patient is the insured Medical (General) History Medical History History ICD Code Critical Aortic Stenosis - S/P AVR, 03/25 Embolic CVA, 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 Porter 03/25 012
[2025-02-08] MEDS: FENTANYL CITRATE/PF 1,000 MCG in 0.9 % SODIUM CHLORIDE 80 ML 5 MCG IV (07:50)
--- NOTE | 2025-02-08 08:36 | HMH.PHAAMS2 ---
- Antimicrobial Stewardship Review culture & sensitivity review Stewardship interventions: culture & sensitivity review Comments: CRE culture pending, ordered vancomycin for infection prevention due to indwelling trans venous pacer wires. Per MD note, patient possibly back to [facility] today for KIMMY/pacemaker placement.
--- NOTE | 2025-02-08 09:27 | P.CONS_ITS ---
History of Present Illness History of present illness: Mr. Burns is a 69-year-old man brought to the hospital after witnessed cardiac arrest needing intubation mechanical ventilatory support and pulmonary was called for further evaluation and management. [facility] Disclaimer: The information contained in this section may have been updated after the patient was seen, as this information can be updated by other users. Medical History (Updated 02/08/25 @ 10:46 by Maria D Hernández MD) CAP (community acquired pneumonia) Social History (Updated 02/07/25 @ 19:30 by America Olea RN) Smoking Status: Unknown if ever smoked alcohol intake: current current occupational status: employed Travel in the last 8 weeks?: Inside the [place] Have you lived/traveled outside US in past 30 days?: No Contact w/someone who lives/traveled outside US past 30 days?: No Exposure to someone with infectious disease in past 14 days?: No Do you have a fever (greater than 100.4 F or 38 C)?: No Have you tested positive for COVID-19?: No Exposed to someone with COVID-19 in past 14 days?: No Do you have a sore throat?: No Do you have a cough?: No Do you have any weakness?: No Do you have any diarrhea?: No Are you experiencing any unusual bleeding?: No Do you have any muscle aches/pain?: No Do you have any abdominal pain?: No Are you experiencing loss of taste or smell?: No Review of Systems Review of Systems Review of systems:: unable to obtain Pulmonology Exam Inpatient Vital signs and Labs for Last 24 Hours: Temp Pulse Resp BP Pulse Ox O2 Del Method O2 Flow Rate 97.9 F 83 18 121/70 100 Mechanical Ventilation 35 02/08/25 08:47 02/08/25 08:47 02/08/25 07:00 02/08/25 08:47 02/08/25 08:47 02/08/25 08:50 02/08/25 07:50 FiO2 35 02/08/25 07:50 Laboratory Results - last 24 hr 02/07/25 14:50: WBC 11.9 H, RBC 4.95, Hgb 14.8, Hct 43.9, MCV 88.7, MCH 29.9, MCHC 33.7, RDW 12.5, Plt Count 220, MPV 11.2 H, Neut % (Auto) 53.8, Lymph % (Auto) 37.6, Garden % (Auto) 4.9, Eos % (Auto) 1.4, Baso % (Auto) 0.4, Neut # (Auto) 6.4, Lymph # (Auto) 4.5, Garden # (Auto) 0.6, Eos # (Auto) 0.2, Baso # (Auto) 0.1, PT 11.8, INR 1.07, APTT 25.7, Sodium 139, Potassium 3.4 L, Chloride 106, Carbon Dioxide 20 L, Anion Gap 16.4 H, BUN 19, Creatinine 1.20, Estimated Creat Clear 65, Estimated GFR 60, Est GFR ( Amer) 72, Glucose 167 H, Calcium 8.9, Total Bilirubin 1.0, AST 145 H, ALT 120 H, Alkaline Phosphatase 89, Troponin I 0.08 H, Total Protein 7.7, Albumin 4.7, Globulin 3.0, Albumin/Globulin Ratio 1.6 02/07/25 14:55: VBG pH 7.31, VBG pCO2 29.8 L, VBG pO2 67.3 H, VBG HCO3 14.7 L, V BG Total CO2 15.7 L, VBG O2 Saturation 92.0 H, VBG Base Excess -11.5 L, VBG Lactic Acid 5.5 H 02/07/25 15:43: ABG pH 7.25 L, ABG pCO2 38.2, ABG pO2 112.2 H, ABG HCO3 16.4 L, ABG Total CO2 17.5 L, ABG O2 Saturation 98, ABG Base Excess -10.9 L, ABG Lactate 3.9 H 02/07/25 16:12: Specimen Source Art line, ABG pH 7.36, ABG pCO2 30.9 L, ABG pO2 109.2 H, ABG HCO3 17.1 L, ABG Total CO2 18.1 L, ABG O2 Saturation 98, ABG Base Excess -8.3 L, Bertin Test Patient unable, Vent Rate 20, Tidal Volume 440, PEEP 5 02/07/25 18:27: WBC 13.3 H, RBC 4.73, Hgb 14.1, Hct 40.4 L, MCV 85.4, MCH 29.8, MCHC 34.9, RDW 12.4, Plt Count 166, MPV 10.7 H, Neut % (Auto) 82.3 H, Lymph % (Auto) 8.6 L, Garden % (Auto) 8.1, Eos % (Auto) 0.3, Baso % (Auto) 0.2, Neut # (Auto) 10.9 H, Lymph # (Auto) 1.1, Garden # (Auto) 1.1 H, Eos # (Auto) 0.0, Baso # (Auto) 0.0, APTT 24.8 L, Sodium 134 L, Potassium 4.3 D, Chloride 108 H, Carbon Dioxide 19 L, Anion Gap 11.3, BUN 20, Creatinine 1.00, Estimated Creat Clear 78, Estimated GFR 74, Est GFR ( Amer) 89 D, Glucose 120 H D, Hemoglobin A1c 5.3, Lactate 1.3, Calcium 9.1, Troponin I 3.15 H, TSH 2.92 02/08/25 05:07: WBC 10.2, RBC 4.74, Hgb 13.6 L, Hct 41.4 L, MCV 87.3, MCH 28.7, MCHC 32.9, RDW 13.0, Plt Count 158, MPV 11.4 H, Neut % (Auto) 83.9 H, Lymph % (Auto) 8.4 L, Garden % (Auto) 6.8, Eos % (Auto) 0.3, Baso % (Auto) 0.2, Neut # (Auto) 8.6 H, Lymph # (Auto) 0.9, Garden # (Auto) 0.7, Eos # (Auto) 0.0, Baso # (Auto) 0.0, Sodium 137, Potassium 4.2, Chloride 111 H, Carbon Dioxide 18 L, Anion Gap 12.2, BUN 23 H, Creatinine 1.10, Estimated Creat Clear 72, Estimated GFR 66, Est GFR ( Amer) 80, Glucose 128 H, Calcium 8.7, Magnesium 2.3, Total Bilirubin 0.7, AST 124 H, ALT 115 H, Alkaline Phosphatase 82, Total Protein 6.6, Albumin 4.1 D, Globulin 2.5, Albumin/Globulin Ratio 1.6 02/08/25 06:00: Specimen Source Art line, O2 % 50%, ABG pH 7.40, ABG pCO2 30.6 L , ABG pO2 143.2 H, ABG HCO3 18.7 L, ABG Total CO2 19.6 L, ABG O2 Saturation 99, ABG Base Excess -6.0 L, Bertin Test Patient unable, Vent Rate 18, Tidal Volume 440, PEEP 5 I & O for Labs for Last 24 Hours: Intake & Output 02/05/25 02/06/25 02/07/25 02/08/25 23:59 23:59 23:59 23:59 Intake Total 1120.333 / 1120.333 533.380 / 533.380 Output Total 547 / 1047 1170 / 1170 Balance 573.333 / 73.333 -636.620 / -636.620 Weight 180 lb 181 lb 10.574 oz Constitutional: Present severe distress Comment:: Intubated and Sedated Head: Present normocephalic and atraumatic Neck: Present normal inspection and trachea midline Respiratory: Present patient mechanically ventilated; Absent prolonged expiratory phase, rhonchi or wheezes Cardiac: Present S1/S2 and Tachycardia GI: Present soft; Absent distention or tenderness Skin: Present intact; Absent cyanosis Neuro: Absent alert, awake or oriented x 3 Comment:: Intubated and sedated Extremities: Present normal inspection; Absent clubbing or cyanosis Psychiatric: Present unable to assess Meds Home Medications and Allergies Home Medications ?Medication ?Instructions ?Recorded ?Confirmed ?Type No Known Home Medications 02/07/2501/22 History New Prescriptions to Start Prescriptions: Allergies Allergy/AdvReac Type Severity Reaction Status Date / Time No Known Allergies Allergy Unverified 02/08/25 07:15 Results Laboratory Findings 02/08/25 05:07 02/08/25 05:07 ABG ABG pH 7.40 mmol/L (7.35-7.45) 02/08/25 06:00 ABG pCO2 30.6 mmhg (35.0-45.0) L 02/08/25 06:00 ABG pO2 143.2 mmhg (80-100) H 02/08/25 06:00 ABG O2 Saturation 99 % (90-100) 02/08/25 06:00 PT/INR, D-dimer PT 11.8 seconds (10.1-12.5) 02/07/25 14:50 INR 1.07 (0.9-1.1) 02/07/25 14:50 Abnormal lab findings: Abnormal Labs 02/07/25 02/07/25 02/07/25 14:50 14:55 15:43 WBC 11.9 H Hgb Hct MPV 11.2 H Neut % (Auto) Lymph % (Auto) Neut # (Auto) Garden # (Auto) APTT ABG pH 7.25 L ABG pCO2 ABG pO2 112.2 H ABG HCO3 16.4 L ABG Total CO2 17.5 L ABG Base Excess -10.9 L ABG Lactate 3.9 H VBG pCO2 29.8 L VBG pO2 67.3 H VBG HCO3 14.7 L VBG Total CO2 15.7 L VBG O2 Saturation 92.0 H VBG Base Excess -11.5 L VBG Lactic Acid 5.5 H Sodium Potassium 3.4 L Chloride Carbon Dioxide 20 L Anion Gap 16.4 H BUN Glucose 167 H AST 145 H ALT 120 H Troponin I 0.08 H 02/07/25 02/07/25 02/08/25 16:12 18:27 05:07 WBC 13.3 H Hgb 13.6 L Hct 40.4 L 41.4 L MPV 10.7 H 11.4 H Neut % (Auto) 82.3 H 83.9 H Lymph % (Auto) 8.6 L 8.4 L Neut # (Auto) 10.9 H 8.6 H Garden # (Auto) 1.1 H APTT 24.8 L ABG pH ABG pCO2 30.9 L ABG pO2 109.2 H ABG HCO3 17.1 L ABG Total CO2 18.1 L ABG Base Excess -8.3 L ABG Lactate VBG pCO2 VBG pO2 VBG HCO3 VBG Total CO2 VBG O2 Saturation VBG Base Excess VBG Lactic Acid Sodium 134 L Potassium Chloride 108 H 111 H Carbon Dioxide 19 L 18 L Anion Gap BUN 23 H Glucose 120 H D 128 H AST 124 H ALT 115 H Troponin I 3.15 H 02/08/25 06:00 WBC Hgb Hct MPV Neut % (Auto) Lymph % (Auto) Neut # (Auto) [place] # (Auto) APTT ABG pH ABG pCO2 30.6 L ABG pO2 143.2 H ABG HCO3 18.7 L ABG Total CO2 19.6 L ABG Base Excess -6.0 L ABG Lactate VBG pCO2 VBG pO2 VBG HCO3 VBG Total CO2 VBG O2 Saturation VBG Base Excess VBG Lactic Acid Sodium Potassium Chloride Carbon Dioxide Anion Gap BUN Glucose AST ALT Troponin I Assessment and Plan *Assessment and plan (1) CAP (community acquired pneumonia): Status: Acute Category: Medical Code(s): J18.9 - Pneumonia, unspecified organism (2) On mechanically assisted ventilation: Status: Acute Category: Medical Code(s): Z99.11 - Dependence on respirator [ventilator] status Plan Much of the history is obtained from chart review. Mr. Burns is a 69-year-old man brought to the hospital after witnessed cardiac arrest needing intubation mechanical ventilatory support and pulmonary was called for further evaluation and management. CTA upon admission no evidence of pulmonary embolism. Bilateral lower lobe airspace disease. No pleural effusions. Afebrile. Externally paced. Episodes of A-fib RVR. Mild neutrophilic predominant leukocytosis improving. Currently receiving vancomycin. Chest x-ray postintubation ET tube at the sravanthi pulled out by 2 cm. Blood gases has been reviewed and ventilator settings has been changed for metabolic alkalosis. Plan: Continue Analgosedation with propofol and fentanyl. Awaiting cardiology procedures to wean sedation and perform SBT. Continue mechanical ventilatory support. Continue current settings with PEEP of 5 rate of 18 tidal volume of 420 on FiO2 of 40%. Follow with tracheal aspirate cultures. Sample collected yesterday. Will follow. Currently receiving vancomycin. Antibiotics can be weaned with coverage for community-acquired pneumonia from pulmonary standpoint. DuoNebs every 6 hours on a scheduled basis Abdomen soft nondistended - Continue mechanical ventilatory support - Continue AnalgoSedation with Propofol and Fentanyl with CPOT gal less than or euqal to 2 and RASS goal of to 2 (No need for deep sedation) - VAP bundle Recommend elevate head of the bed at 30 to 45 degrees Recommend oral care with chlorhexidne Recommend GI ulcer prophylaxis - Famotidine 20mg IV BID Recommend chemical DVT prophylaxis Total critical care time spent on this patient is 35 minutes managing acute hypoxic respiratory failure needing mechanical ventilation. This time spent include reviewing test results including interpreting chest x-rays, labs and arterial blood gas, optimizing the ventilator settings,formulating plan of care, discussing the plan of care with the team and the nursing staff.
--- NOTE | 2025-02-08 09:43 | SW/DCPLANNER ---
I have reached out to Sima muro/ [employer]BDOU[employer]E regarding [employer] for this patient to locate family members. I am waiting to hear back from Sima. CM will continue to follow up.
--- NOTE | 2025-02-08 10:20 | PC.NURSE ---
Patient to [facility] [employer].
--- NOTE | 2025-02-08 10:24 | CA_ITS ---
APPROVED REPORT EXAM: Comprehensive 2D, Doppler, and color-flow Echocardiogram Sas Programmer: Krystal HamiltonmermanRAYMOND Ht: 5 ft 8 in Wt: 181lbs BSA: 1.96 BP: 94/62 mmHg Indications: A-FIB WITH CARDIOVERSION Procedure After obtaining informed consent, patient underwent transesophageal echo in the [facility]. Type of Sedation : mechanical intubation Sedation was administered by Gagan Carpio C.R.N.ACassie Sedation start time: 11:30 Case end Time: 11:45 The KIMMY was performed without complications. Synchronized Cardioversion acheived with 150 Joules after 1 attempt(s). Rhythm following Synchronized Cardioversion: Normal Sinus Rhythm Throughout the procedure, the blood pressure, pulse oximetry, cardiac rhythm, and rate were monitored. The patient tolerated the procedure without adverse effects. Recovery from conscious sedation was uneventful and vital signs were stable. Left Ventricle The left ventricle is normal size. The left ventricular systolic function is low-normal. The left ventricular ejection fraction is within the normal range. There is increased LV wall thickness. There is normal LV segmental wall motion. LVEF is 50-55%. Right Ventricle The right ventricle is normal size. The right ventricular systolic function is normal. Atria The left atrium size is normal. No thrombus is visualized in the left atrium or appendage. The right atrium size is normal. Interatrial septum is intact without evidence of ASD or PFO. Aortic Valve s/p AVR. The prosthesis is well-seated. The valve leaflets open partially, but with no evidence of aortic stenosis. Mild central aortic regurgitation. There is no aortic valvular vegetation or thrombi noted. Mitral Valve The mitral valve is mildly thickened. No evidence of mitral valve stenosis. Trace mitral regurgitation. Tricuspid Valve Tricuspid valve is grossly normal in structure and function. Mild tricuspid regurgitation. RVSP is 12 mmHg + RA pressure. Pulmonic Valve The pulmonary valve is normal in structure. Trace pulmonic regurgitation. Great Vessels The aortic root is normal in size. The ascending aorta is normal in size. Pericardium There is no pericardial effusion. Other Information Study Quality: Fair Conclusion Low-normal LV systolic function (LVEF 50-55%). s/p AVR. The prosthetic leaflets open partially, but with no evidence of aortic stenosis. No evidence of vegetations or thrombi. Mild central AI. Mild TR. No thrombus is visualized in the left atrium or appendage. Electronically signed by : Norma Garcia MD 02/18/2025 15:43:54
--- NOTE | 2025-02-08 10:50 | SUR.OPER ---
Procedure delayed d/t emergency, pt taken off the table and put in post op bay.
--- NOTE | 2025-02-08 11:22 | EXP.CARD.CON ---
History of Present Illness History of Present Illness Consult date: 02/08/25 Requesting physician: Calos Otero Chief complaint: Cardiac arrest History of present illness: History obtained from chart due to patient condition: Hospitalist note: 69-year-old male who had a witnessed arrest at [employer]. Resuscitation was performed for about 10 minutes. Received 2-3 shocks from defibrillator. Intubated prior to arrival. Had supraglottic airway. Found to be bradycardic. Taken urgently to [facility] [employer] for evaluation of cardiac arrest and complete heart block. Discussed case with cardiology after procedure, patient currently has transvenous pacing for his heart block. Sedated and intubated at this time. Will need admission to ICU for further management. Remainder of history known as follows: Appears to have bioprosthetic aortic valve. Has scar on lower abdomen consistent with previous appendectomy. Unable to obtain any further history or review of systems. Cardiology note: Mr. Burns is a 69-year-old male who is status post V-fib arrest who is currently intubated and sedated. Only known history is history of a bioprosthetic aortic valve. Patient underwent left heart catheterization yesterday which showed nonocclusive coronary artery disease with moderate disease in the mid dominant RCA. Temporary transvenous pacemaker was placed with a temporary transcutaneous pacemaker as a backup left in place for episodes of bradycardia and heart block. KIMMY and cardioversion will be performed today for A-fib and patient will undergo placement of AICD for V-fib arrest. Echocardiogram is pending. Morning labs reviewed. [facility] Disclaimer: The information contained in this section may have been updated after the patient was seen, as this information can be updated by other users. Medical History (Updated 02/08/25 @ 10:46 by Maria D Hernández MD) CAP (community acquired pneumonia) Social History (Updated 02/07/25 @ 19:30 by America Olea RN) Smoking Status: Unknown if ever smoked alcohol intake: current current occupational status: employed Travel in the last 8 weeks?: Inside the [place] Have you lived/traveled outside US in past 30 days?: No Contact w/someone who lives/traveled outside US past 30 days?: No Exposure to someone with infectious disease in past 14 days?: No Do you have a fever (greater than 100.4 F or 38 C)?: No Have you tested positive for COVID-19?: No Exposed to someone with COVID-19 in past 14 days?: No Do you have a sore throat?: No Do you have a cough?: No Do you have any weakness?: No Do you have any diarrhea?: No Are you experiencing any unusual bleeding?: No Do you have any muscle aches/pain?: No Do you have any abdominal pain?: No Are you experiencing loss of taste or smell?: No Review of Systems Review of Systems Review of systems:: unable to obtain Exam Data for Last 24 hours Vital signs and Labs for Last 24 Hours: Temp Pulse Resp BP Pulse Ox O2 Del Method O2 Flow Rate 98.1 F 82 20 94/62 L 99 Mechanical Ventilation 35 02/08/25 09:48 02/08/25 11:09 02/08/25 11:09 02/08/25 11:09 02/08/25 11:09 02/08/25 11:09 02/08/25 07:50 FiO2 35 02/08/25 10:00 Laboratory Results - last 24 hr 02/07/25 14:50: WBC 11.9 H, RBC 4.95, Hgb 14.8, Hct 43.9, MCV 88.7, MCH 29.9, MCHC 33.7, RDW 12.5, Plt Count 220, MPV 11.2 H, Neut % (Auto) 53.8, Lymph % (Auto) 37.6, [place] % (Auto) 4.9, Eos % (Auto) 1.4, Baso % (Auto) 0.4, Neut # (Auto) 6.4, Lymph # (Auto) 4.5, [place] # (Auto) 0.6, Eos # (Auto) 0.2, Baso # (Auto) 0.1, PT 11.8, INR 1.07, APTT 25.7, Sodium 139, Potassium 3.4 L, Chloride 106, Carbon Dioxide 20 L, Anion Gap 16.4 H, BUN 19, Creatinine 1.20, Estimated Creat Clear 65, Estimated GFR 60, Est GFR ( Amer) 72, Glucose 167 H, Calcium 8.9, Total Bilirubin 1.0, AST 145 H, ALT 120 H, Alkaline Phosphatase 89, Troponin I 0.08 H, Total Protein 7.7, Albumin 4.7, Globulin 3.0, Albumin/Globulin Ratio 1.6 02/07/25 14:55: VBG pH 7.31, VBG pCO2 29.8 L, VBG pO2 67.3 H, VBG HCO3 14.7 L, VBG Total CO2 15.7 L, VBG O2 Saturation 92.0 H, VBG Base Excess -11.5 L, VBG Lactic Acid 5.5 H 02/07/25 15:43: ABG pH 7.25 L, ABG pCO2 38.2, ABG pO2 112.2 H, ABG HCO3 16.4 L, ABG Total CO2 17.5 L, ABG O2 Saturation 98, ABG Base Excess -10.9 L, ABG Lactate 3.9 H 02/07/25 16:12: Specimen Source Art line, ABG pH 7.36, ABG pCO2 30.9 L, ABG pO2 109.2 H, ABG HCO3 17.1 L, ABG Total CO2 18.1 L, ABG O2 Saturation 98, ABG Base Excess -8.3 L, Bertin Test Patient unable, Vent Rate 20, Tidal Volume 440, PEEP 5 02/07/25 18:27: WBC 13.3 H, RBC 4.73, Hgb 14.1, Hct 40.4 L, MCV 85.4, MCH 29.8, MCHC 34.9, RDW 12.4, Plt Count 166, MPV 10.7 H, Neut % (Auto) 82.3 H, Lymph % (Auto) 8.6 L, [place] % (Auto) 8.1, Eos % (Auto) 0.3, Baso % (Auto) 0.2, Neut # (Auto) 10.9 H, Lymph # (Auto) 1.1, [place] # (Auto) 1.1 H, Eos # (Auto) 0.0, Baso # (Auto) 0.0, APTT 24.8 L, Sodium 134 L, Potassium 4.3 D, Chloride 108 H, Carbon Dioxide 19 L, Anion Gap 11.3, BUN 20, Creatinine 1.00, Estimated Creat Clear 78, Estimated GFR 74, Est GFR ( Amer) 89 D, Glucose 120 H D, Hemoglobin A1c 5.3, Lactate 1.3, Calcium 9.1, Troponin I 3.15 H, TSH 2.92 02/08/25 05:07: WBC 10.2, RBC 4.74, Hgb 13.6 L, Hct 41.4 L, MCV 87.3, MCH 28.7, MCHC 32.9, RDW 13.0, Plt Count 158, MPV 11.4 H, Neut % (Auto) 83.9 H, Lymph % (Auto) 8.4 L, [place] % (Auto) 6.8, Eos % (Auto) 0.3, Baso % (Auto) 0.2, Neut # (Auto) 8.6 H, Lymph # (Auto) 0.9, [place] # (Auto) 0.7, Eos # (Auto) 0.0, Baso # (Auto) 0.0, Sodium 137, Potassium 4.2, Chloride 111 H, Carbon Dioxide 18 L, Anion Gap 12.2, BUN 23 H, Creatinine 1.10, Estimated Creat Clear 72, Estimated GFR 66, Est GFR ( Amer) 80, Glucose 128 H, Calcium 8.7, Magnesium 2.3, Total Bilirubin 0.7, AST 124 H, ALT 115 H, Alkaline Phosphatase 82, Total Protein 6.6, Albumin 4.1 D, Globulin 2.5, Albumin/Globulin Ratio 1.6 02/08/25 06:00: Specimen Source Art line, O2 % 50%, ABG pH 7.40, ABG pCO2 30.6 L, ABG pO2 143.2 H, ABG HCO3 18.7 L, ABG Total CO2 19.6 L, ABG O2 Saturation 99, ABG Base Excess -6.0 L, Bertin Test Patient unable, Vent Rate 18, Tidal Volume 440, PEEP 5 I & O for Last 24 hours: Intake & Output 02/05/25 02/06/25 02/07/25 02/08/25 23:59 23:59 23:59 23:59 Intake Total 1120.333 / 1120.333 533.380 / 533.380 Output Total 547 / 1047 1220 / 1220 Balance 573.333 / 73.333 -686.620 / -686.620 Weight 180 lb 181 lb 10.574 oz Constitutional Comments: Intubated and sedated *Routine Respiratory Exam Respiratory: Present patient mechanically ventilated, CTA bilaterally and symmetric chest movement *Routine Cardiovascular Exam Cardiovascular: Present Normal S1, Normal S2, irregular rhythm and irregularly irregular Comments: A-fib present *Routine Abdominal Exam Abdominal: Present soft and normoactive bowel sounds; Absent tenderness *Routine Extremities Exam Extremities: Present normal capillary refill; Absent edema Comments: Right groin access point-dressing is dry and intact. No obvious swelling or bruising noted. *Routine Skin Exam Skin: Present intact, dry and warm Detailed Neck Exam: Thyroids Thyroid: Absent bruit Meds Home Medications and Allergies Home Medications ?Medication ?Instructions ?Recorded ?Confirmed ?Type No Known Home Medications 02/07/25 02/07/25 History New Prescriptions to Start Prescriptions: Allergies Allergy/AdvReac Type Severity Reaction Status Date / Time No Known Allergies Allergy Unverified 02/08/25 07:15 Assessment and Plan *Assessment and plan (1) History of aortic valve replacement with bioprosthetic valve: Status: Acute Category: Surgical Code(s): Z95.3 - Presence of xenogenic heart valve (2) Atrial flutter: Status: Acute Category: Medical Code(s): I48.92 - Unspecified atrial flutter (3) Ventricular fibrillation: Status: Acute Category: Medical Code(s): I49.01 - Ventricular fibrillation (4) V-tach: Status: Acute Category: Medical Code(s): I47.20 - Ventricular tachycardia, unspecified (5) Cardiac arrest: Status: Acute Category: Medical Code(s): I46.9 - Cardiac arrest, cause unspecified Plan Status postcardiac arrest Witnessed V-fib arrest Currently intubated Witnessed arrest, ROSC achieved in field. Currently has transvenous pacemaker in place bradycardia and high degree block per Dr. Craig Left heart catheterization performed yesterday which showed nonocclusive coronary artery disease with moderate disease in the mid dominant RCA Plan for AICD placement this morning for primary prevention for V-fib arrest Echocardiogram is pending Pulmonology is following and managing ventilator A-fib flutter History of bioprosthetic aortic valve Currently receiving Lovenox will need to transition to OAC Plan for KIMMY/cardioversion today CV summary 02/08/2025: Plan for KIMMY cardioversion and AICD placement today. Pulmonology is following and managing ventilator settings.
--- NOTE | 2025-02-08 11:49 | ECG_ITS ---
APPROVED REPORT Exam: Resting ECG HR:75 bpm ECG Measurements Heart Rate 75 AXES [place] 186 P 68 QRSd 186 QRS -70 QT 492 T 107 QTc 521 Conclusion ELECTRONIC VENTRICULAR PACEMAKER ABNORMAL RHYTHM ECG UNCONFIRMED REPORT Electronically signed by : Ford Collazo MD 02/08/2025 15:04:48
--- NOTE | 2025-02-08 11:54 | SUR.OPER ---
1135 AM CARDIOVERSION COMPLETED AT [address]1 SHOCK
[2025-02-08] MEDS: 0.9 % SODIUM CHLORIDE 500 ML 25 ML IV (12:14)
[2025-02-08] MEDS: LIDOCAINE 1% W/EPI 1:100,000 20ML VIAL 20 ML SQ (12:15)
--- NOTE | 2025-02-08 13:45 | XR_ITS ---
FINAL REPORT CLINICAL HISTORY: Confirm pacemaker/AID placement COMPARISON: 02/07/2025 FINDINGS: The heart size is mildly enlarged. There has been interval placement of a left-sided AICD. ET tube is present with the tip 4 cm above the sravanthi. The lungs are underinflated. There is no focal infiltrate or edema. There are no pleural effusions. There is no pneumothorax. There is no osseous abnormality. IMPRESSION: No acute cardiopulmonary process. New left-sided AICD. Reviewed, Interpreted and Dictated by Gautam Moctezuma MD Transcribed by Sofi Guerra Authenticated and [facility]
--- NOTE | 2025-02-08 13:56 | P.PNANES_ITS ---
[facility] Disclaimer: The information contained in this section may have been updated after the patient was seen, as this information can be updated by other users. Medical History (Updated 02/08/25 @ 10:46 by Maria D Hernández MD) CAP (community acquired pneumonia) Social History (Updated 02/07/25 @ 19:30 by America Olea RN) Smoking Status: Unknown if ever smoked alcohol intake: current substance use type: denies use current occupational status: employed Travel in the last 8 weeks?: Inside the [place] [facility] Anesthesia Checklist Patient Identification Patient Identification: Arm Band Structural Data Admitted From: Inpatient Planned Operative Procedure/s: Dual Chamber AICD Consent for Planned Operative Procedure(s) Verified: Yes Verified Documents: Surgical Consent and History and Physical NPO Status Verified Time NPO: 00:00 Neurological Assessment Level of Consciousness: Sedated Anesthesia Plan Anesthesia Risk discussed: No (pt is sedated/ventilated. Unable to contact family prior to procedure) Anesthesia Plan: Patient unable to respond/answer ASA Class: IV Anesthesia Type: General
--- NOTE | 2025-02-08 14:32 | PC.NURSE ---
Pt returned to unit at 1325
[2025-02-08 14:37] LABS: POC Glucose,Bedside 132 gm/dL (70-110)
--- NOTE | 2025-02-08 15:36 | PC.NURSE ---
Venous sheath out at 15:17.
--- NOTE | 2025-02-08 15:41 | EXP.PN ---
Subjective *Date: 02/08/25 *Time: 15:41 Interval history: Patient continues to be mechanically ventilated, cardiology planning for AICD placement today. Unclear how long patient was down for, and unclear prognosis of neurological status. No signs of anoxic brain injury at this time under sedation. Exam Data for Last 24 hours Vital signs and Labs for Last 24 Hours: Temp Pulse Resp BP Pulse Ox O2 Del Method O2 Flow Rate 98.1 F 82 18 94/62 L 96 Mechanical Ventilation 35 02/08/25 09:48 02/08/25 11:09 02/08/25 14:25 02/08/25 11:09 02/08/25 14:25 02/08/25 11:09 02/08/25 07:50 FiO2 35 02/08/25 14:25 Laboratory Results - last 24 hr 02/07/25 14:50: PT 11.8, INR 1.07, APTT 25.7 02/07/25 15:43: ABG pH 7.25 L, ABG pCO2 38.2, ABG pO2 112.2 H, ABG HCO3 16.4 L, ABG Total CO2 17.5 L, ABG O2 Saturation 98, ABG Base Excess -10.9 L, ABG Lactate 3.9 H 02/07/25 16:12: Specimen Source Art line, ABG pH 7.36, ABG pCO2 30.9 L, ABG pO2 109.2 H, ABG HCO3 17.1 L, ABG Total CO2 18.1 L, ABG O2 Saturation 98, ABG Base Excess -8.3 L, Bertin Test Patient unable, Vent Rate 20, Tidal Volume 440, PEEP 5 02/07/25 18:27: WBC 13.3 H, RBC 4.73, Hgb 14.1, Hct 40.4 L, MCV 85.4, MCH 29.8, MCHC 34.9, RDW 12.4, Plt Count 166, MPV 10.7 H, Neut % (Auto) 82.3 H, Lymph % (Auto) 8.6 L, [place] % (Auto) 8.1, Eos % (Auto) 0.3, Baso % (Auto) 0.2, Neut # (Auto) 10.9 H, Lymph # (Auto) 1.1, [place] # (Auto) 1.1 H, Eos # (Auto) 0.0, Baso # (Auto) 0.0, APTT 24.8 L, Sodium 134 L, Potassium 4.3 D, Chloride 108 H, Carbon Dioxide 19 L, Anion Gap 11.3, BUN 20, Creatinine 1.00, Estimated Creat Clear 78, Estimated GFR 74, Est GFR ( Amer) 89 D, Glucose 120 H D, Hemoglobin A1c 5.3, Lactate 1.3, Calcium 9.1, Troponin I 3.15 H, TSH 2.92 02/08/25 05:07: WBC 10.2, RBC 4.74, Hgb 13.6 L, Hct 41.4 L, MCV 87.3, MCH 28.7, MCHC 32.9, RDW 13.0, Plt Count 158, MPV 11.4 H, Neut % (Auto) 83.9 H, Lymph % (Auto) 8.4 L, [place] % (Auto) 6.8, Eos % (Auto) 0.3, Baso % (Auto) 0.2, Neut # (Auto) 8.6 H, Lymph # (Auto) 0.9, [place] # (Auto) 0.7, Eos # (Auto) 0.0, Baso # (Auto) 0.0, Sodium 137, Potassium 4.2, Chloride 111 H, Carbon Dioxide 18 L, Anion Gap 12.2, BUN 23 H, Creatinine 1.10, Estimated Creat Clear 72, Estimated GFR 66, Est GFR ( Amer) 80, Glucose 128 H, Calcium 8.7, Magnesium 2.3, Total Bilirubin 0.7, AST 124 H, ALT 115 H, Alkaline Phosphatase 82, Total Protein 6.6, Albumin 4.1 D, Globulin 2.5, Albumin/Globulin Ratio 1.6 02/08/25 06:00: Specimen Source Art line, O2 % 50%, ABG pH 7.40, ABG pCO2 30.6 L, ABG pO2 143.2 H, ABG HCO3 18.7 L, ABG Total CO2 19.6 L, ABG O2 Saturation 99, ABG Base Excess -6.0 L, Bertin Test Patient unable, Vent Rate 18, Tidal Volume 440, PEEP 5 02/08/25 14:29: POC Glucose 132 H Temp Pulse Resp BP Pulse Ox O2 Del Method O2 Flow Rate 98.1 F 82 20 94/62 L 99 Mechanical Ventilation 35 02/08/25 09:48 02/08/25 11:09 02/08/25 11:09 02/08/25 11:09 02/08/25 11:09 02/08/25 11:09 02/08/25 07:50 FiO2 35 02/08/25 10:00 Laboratory Results - last 24 hr 02/07/25 14:50: WBC 11.9 H, RBC 4.95, Hgb 14.8, Hct 43.9, MCV 88.7, MCH 29.9, MCHC 33.7, RDW 12.5, Plt Count 220, MPV 11.2 H, Neut % (Auto) 53.8, Lymph % (Auto) 37.6, [place] % (Auto) 4.9, Eos % (Auto) 1.4, Baso % (Auto) 0.4, Neut # (Auto) 6.4, Lymph # (Auto) 4.5, [place] # (Auto) 0.6, Eos # (Auto) 0.2, Baso # (Auto) 0.1, PT 11.8, INR 1.07, APTT 25.7, Sodium 139, Potassium 3.4 L, Chloride 106, Carbon Dioxide 20 L, Anion Gap 16.4 H, BUN 19, Creatinine 1.20, Estimated Creat Clear 65, Estimated GFR 60, Est GFR ( Amer) 72, Glucose 167 H, Calcium 8.9, Total Bilirubin 1.0, AST 145 H, ALT 120 H, Alkaline Phosphatase 89, Troponin I 0.08 H, Total Protein 7.7, Albumin 4.7, Globulin 3.0, Albumin/Globulin Ratio 1.6 02/07/25 14:55: VBG pH 7.31, VBG pCO2 29.8 L, VBG pO2 67.3 H, VBG HCO3 14.7 L, VBG Total CO2 15.7 L, VBG O2 Saturation 92.0 H, VBG Base Excess -11.5 L, VBG Lactic Acid 5.5 H 02/07/25 15:43: ABG pH 7.25 L, ABG pCO2 38.2, ABG pO2 112.2 H, ABG HCO3 16.4 L, ABG Total CO2 17.5 L, ABG O2 Saturation 98, ABG Base Excess -10.9 L, ABG Lactate 3.9 H 02/07/25 16:12: Specimen Source Art line, ABG pH 7.36, ABG pCO2 30.9 L, ABG pO2 109.2 H, ABG HCO3 17.1 L, ABG Total CO2 18.1 L, ABG O2 Saturation 98, ABG Base Excess -8.3 L, Bertin Test Patient unable, Vent Rate 20, Tidal Volume 440, PEEP 5 02/07/25 18:27: WBC 13.3 H, RBC 4.73, Hgb 14.1, Hct 40.4 L, MCV 85.4, MCH 29.8, MCHC 34.9, RDW 12.4, Plt Count 166, MPV 10.7 H, Neut % (Auto) 82.3 H, Lymph % (Auto) 8.6 L, [place] % (Auto) 8.1, Eos % (Auto) 0.3, Baso % (Auto) 0.2, Neut # (Auto) 10.9 H, Lymph # (Auto) 1.1, [place] # (Auto) 1.1 H, Eos # (Auto) 0.0, Baso # (Auto) 0.0, APTT 24.8 L, Sodium 134 L, Potassium 4.3 D, Chloride 108 H, Carbon Dioxide 19 L, Anion Gap 11.3, BUN 20, Creatinine 1.00, Estimated Creat Clear 78, Estimated GFR 74, Est GFR ( Amer) 89 D, Glucose 120 H D, Hemoglobin A1c 5.3, Lactate 1.3, Calcium 9.1, Troponin I 3.15 H, TSH 2.92 02/08/25 05:07: WBC 10.2, RBC 4.74, Hgb 13.6 L, Hct 41.4 L, MCV 87.3, MCH 28.7, MCHC 32.9, RDW 13.0, Plt Count 158, MPV 11.4 H, Neut % (Auto) 83.9 H, Lymph % (Auto) 8.4 L, [place] % (Auto) 6.8, Eos % (Auto) 0.3, Baso % (Auto) 0.2, Neut # (Auto) 8.6 H, Lymph # (Auto) 0.9, [place] # (Auto) 0.7, Eos # (Auto) 0.0, Baso # (Auto) 0.0, Sodium 137, Potassium 4.2, Chloride 111 H, Carbon Dioxide 18 L, Anion Gap 12.2, BUN 23 H, Creatinine 1.10, Estimated Creat Clear 72, Estimated GFR 66, Est GFR ( Amer) 80, Glucose 128 H, Calcium 8.7, Magnesium 2.3, Total Bilirubin 0.7, AST 124 H, ALT 115 H, Alkaline Phosphatase 82, Total Protein 6.6, Albumin 4.1 D, Globulin 2.5, Albumin/Globulin Ratio 1.6 02/08/25 06:00: Specimen Source Art line, O2 % 50%, ABG pH 7.40, ABG pCO2 30.6 L, ABG pO2 143.2 H, ABG HCO3 18.7 L, ABG Total CO2 19.6 L, ABG O2 Saturation 99, ABG Base Excess -6.0 L, Bertin Test Patient unable, Vent Rate 18, Tidal Volume 440, PEEP 5 I & O for Last 24 hours: Intake & Output 02/05/25 02/06/25 02/07/25 02/08/25 23:59 23:59 23:59 23:59 Intake Total 1120.333 / 8062.084 7139.999 / 1150.999 Output Total 547 / 1047 1445 / 1445 Balance 573.333 / 73.333 -294.001 / -294.001 Weight 81.647 kg 82.4 kg Intake & Output 02/05/25 02/06/25 02/07/25 02/08/25 23:59 23:59 23:59 23:59 Intake Total 1120.333 / 1120.333 533.380 / 533.380 Output Total 547 / 1047 1220 / 1220 Balance 573.333 / 73.333 -686.620 / -686.620 Weight 180 lb 181 lb 10.574 oz Microbiology Reports for the Last 24 Hours: Microbiology 02/07/25 Unknown Sputum - Endotracheal Tube Aspirate Gram Stain - Final Constitutional Comments: Intubated and sedated *Routine Respiratory Exam Respiratory: Present patient mechanically ventilated, CTA bilaterally and symmetric chest movement *Routine Cardiovascular Exam Cardiovascular: Present Normal S1, Normal S2, irregular rhythm and irregularly irregular Comments: A-fib present *Routine Abdominal Exam Abdominal: Present soft and normoactive bowel sounds; Absent tenderness *Routine Extremities Exam Extremities: Present normal capillary refill; Absent edema Comments: Right groin access point-dressing is dry and intact. No obvious swelling or bruising noted. *Routine Skin Exam Skin: Present intact, dry and warm Detailed Neck Exam: Thyroids Thyroid: Absent bruit Assessment and Plan *Assessment and plan (1) Ventricular fibrillation: Status: Acute Category: Medical Code(s): I49.01 - Ventricular fibrillation (2) Cardiac arrest: Status: Acute Category: Medical Code(s): I46.9 - Cardiac arrest, cause unspecified (3) Complete heart block: Status: Acute Category: Medical Code(s): I44.2 - Atrioventricular block, complete (4) On mechanically assisted ventilation: Status: Acute Category: Medical Code(s): Z99.11 - Dependence on respirator [ventilator] status (5) NSTEMI (non-ST elevated myocardial infarction): Status: Acute Category: Medical Code(s): I21.4 - Non-ST elevation (NSTEMI) myocardial infarction (6) Atrial flutter: Status: Acute Category: Medical Code(s): I48.92 - Unspecified atrial flutter (7) History of aortic valve replacement with bioprosthetic valve: Status: Acute Category: Surgical Code(s): Z95.3 - Presence of xenogenic heart valve Plan Mr. Burns is a 69-year-old male who had a witnessed arrest at the grocery store. He was resuscitated by arrival to the ER. Found to be in complete heart block with NSTEMI. Patient taken urgently to the [facility] for intervention with placement of transvenous pacer on 02/07/2025. Case discussed with ER physician and space planner, request admission for further management after placement of pacemaker. Cardiac arrest due to ventricular fibrillation with complete heart block On mechanical ventilation Type II NSTEMI A-flutter Bioprosthetic aortic valve -Witnessed arrest on 02/07/2025. Achieved resuscitation. Found to be in heart block per review of EKG. Currently transvenous paced this morning. Continue pacing at 80 bpm. Cardiology to reevaluate in the morning for placement of pacemaker and AICD - Plan for KIMMY in the morning - Will consider cardioversion with his A-flutter - Anticoagulate with Lovenox 1 mg/kg twice daily - Monitor on telemetry - Currently intubated on mechanical ventilation due to arrest. Will maintain mechanical ventilation due to need for KIMMY and placement of pacer/defibrillator in the morning. - Continue analgo-sedation with propofol and fentanyl. RASS goal -2 given placement of transvenous pacer and risk of dislodgment of patient has significant movement, currently on minimal settings. Pulmonology consulted to assist with care and management. Will consider attempting extubation after placement of pacemaker as patient has no appreciable underlying lung disease. - Initial troponin 0.08. Repeat troponin greater than 3. Consistent with NSTEMI from strain of her wrist. - Scans of chest showed no PE on CTA. Patient had normal pH of 7.3. - Vancomycin empirically to decrease risk for infection given indwelling trans venous pacer wires. ? Cardiology consulted, s/p [facility] on 02/07/2025 with nonocclusive disease. -Discussed with cardiology, planning for AICD placement today. Patient currently stable on mechanical ventilation. Full code N.p.o. Therapeutic Lovenox
--- NOTE | 2025-02-08 16:29 | PC.NURSE ---
1545 hematoma noted on left upper chest at pacemaker site. manual pressure held and sandbag applied. 1600 called manager cath lab and notified of hematoma 1620 dr Harvey at bedside and notified of hematoma.
--- NOTE | 2025-02-08 16:29 | PC.NURSE ---
Arterial sheath pulled at 1545. Both sites from venous and arterial sheath was clean and dry. Gauze and tegaderm applied.
[2025-02-08] MEDS: DOXYCYCLINE HYCLATE 100 MG in 0.9 % SODIUM CHLORIDE 250 ML 166.67 MG IV (16:32)
[2025-02-08 17:30] LABS: POC Glucose,Bedside 135 gm/dL (70-110)
[2025-02-08] MEDS: IOPAMIDOL-370 (76%);100ML BOTTLE 25 ML IV (18:38)
[2025-02-08] MEDS: SUCCINYLCHOLINE 20MG/ML 10 ML MDV 100 MG IV (19:24)
--- NOTE | 2025-02-08 19:30 | XR_ITS ---
PROCEDURE INFORMATION: Exam: XR Chest Exam date and time: 02/08/2025 7:35 PM Age: 69 years old Clinical indication: Device placement; Other: Et tube exchange TECHNIQUE: Imaging protocol: Radiologic exam of the chest. Views: 1 view. Total images: 1 COMPARISON: CR XR CHEST PORTABLE 02/08/2025 1:44 PM FINDINGS: Tubes, catheters and devices: Endotracheal tube 12 mm above the sravanthi. Left subclavian cardiac pacemaker. Lungs: New left perihilar and left basilar airspace opacification. This is in part artifactual. Right lung is clear. Pleural spaces: Unremarkable. No pleural effusion. No pneumothorax. Heart/Mediastinum: Stable cardiomediastinal silhouette. Bones/joints: Status post median sternotomy. Moderate to severe degenerative changes thoracic spine and both shoulders. Notes: Considerable limitations from extrinsic artifact obscuring lung parenchyma. IMPRESSION: 1. Limited exam as above. 2. Endotracheal tube 12 mm above the sravanthi. 3. New left perihilar and left basilar airspace opacification.
--- NOTE | 2025-02-08 19:33 | P.EN_ITS ---
Informed by nursing staff that patient's ET tube cuff required additional air to maintain occlusion at the distal end of the ET tube. Respiratory therapist reports that ET tube cuff is compromised and is unable to safely maintain patient volumes. I contacted the ER provider who voiced a willingness to come and perform a tube exchange. Will obtain portable chest x-ray post exchange-W ill update attending in the a.m.
--- NOTE | 2025-02-08 19:35 | EXP.EVENT.NO ---
I was contacted by hospitalist taking care of this patient. Patient is critically ill requiring mechanical ventilation at this time and has a cuff leak and requires airway exchange for definitive mechanical ventilation. This was confirmed by respiratory therapy at bedside. Timeout was conducted. Patient was paralyzed with 100 mg of succinylcholine after induction with 30 mg propofol for which she was already receiving continuous propofol and fentanyl infusions for sedation. Bougie exchange was conducted with 7.5 ETT. Cuff was inflated, tube visualized through the cords, transient desaturation with rapid recovery during exchange. Post exchange chest x-ray ordered by hospitalist.
--- NOTE | 2025-02-08 19:55 | PC.NURSE ---
1919: provider [place] to icu to inform the nurse of doing a tube exchange due to pt having a cuff leak in the ET tube. ER doc Han called. Respiratory called. 1922: Time out performed by Han MICHAUD 1923: 30mg (3mL) bolus of propofol given per 1923: 100mg (5mL) of succinylcholine given per 1924: Provider started process of tube exchange 1926: New tube in. 7.5 ETT tube 22@ the lip. O2 sat 90% while bagging. People at bedside during this procedure: Han MICHAUD, [place] hospitalist, Karan PRUITT, Ben PRUITT, Respiratory therapists, Ever BOSWELL. Pre Vitals @1921: bp 114/67 HR 76 RR 15 O2 98 Post Vitals @ 1927: bp 127/78 HR 89 RR 25 O2 90%
--- NOTE | 2025-02-08 20:03 | PC.NURSE ---
193: This nurse wasted 100mg of succinylcholine with Krystal PRUITT
[2025-02-08 20:05] LABS: POC Glucose,Bedside 135 gm/dL (70-110)
[2025-02-08] MEDS: VANCOMYCIN/WATER FOR INJ (PEG) 1.5 GM/300 ML PIGGYBACK IV (20:08)
[2025-02-08] MEDS: PANTOPRAZOLE 40MG VIAL 40 MG IV (21:22)
[2025-02-09] VITALS (37 sets, daily range): BP systolic 95–147; BP diastolic 49–83; PULSE 70–103; RESP 16–29; TEMP 36.6–38.5; O2SAT 93–100; BMI 27.6
[2025-02-09] MEDS: FENTANYL CITRATE/PF 1,000 MCG in 0.9 % SODIUM CHLORIDE 80 ML 5 MCG IV (00:34)
[2025-02-09] MEDS: IPRATROPIUM/ALBUTEROL 3 ML NEB IH ×3 (06:10→18:14)
[2025-02-09 06:19] LABS: POC Glucose,Bedside 138 gm/dL (70-110)
[2025-02-09] MEDS: DOXYCYCLINE HYCLATE 100 MG in 0.9 % SODIUM CHLORIDE 250 ML 166.67 MG IV ×2 (06:50→18:39)
--- NOTE | 2025-02-09 07:30 | PC.NURSE ---
0720 - SBT started @ this time by RT Florencia. Pt is alert and able to follow commands - tolerating well.
[2025-02-09 07:42] LABS: Hematocrit 42.1 % (42.0-52.0); Hemoglobin 13.8 g/dL (14.1-18.0); Immature Granulocytes % 0.4 %; Mean Corpuscular HGB Conc 32.8 g/dL (31.8-35.4); Mean Corpuscular Hemoglobin 30.1 pg (27.0-31.2); Mean Corpuscular Volume 91.7 fl (80-94); Nucleated Red Blood Cells % 0 %; Platelet Count 144 K/mm3 (142-424); Red Blood Count 4.59 M/mm3 (4.60-6.20); Red Cell Distribution Width-SD 44.3 fL; White Blood Count 12.1 K/mm3 (4.8-10.8)
[2025-02-09] MEDS: FENTANYL 12.5MCG/0.25ML 12.5 MCG IV (07:49)
[2025-02-09] MEDS: SODIUM CHLORIDE 0.9% 10ML FLUSH SYRINGE 10 ML IV (07:50)
--- NOTE | 2025-02-09 08:24 | HMH.PHAAMS2 ---
- Antimicrobial Stewardship Review culture & sensitivity review Stewardship interventions: culture & sensitivity review (CURRENTLY ON DOXYCYCLINE AND VANCOMYCIN, WBC STILL EVEVATED, SPUTUM CX STILL PENDING.)
[2025-02-09] MEDS: ACETAMINOPHEN 1,000MG/100ML VIAL 1000 MG IV ×2 (08:45→15:49)
--- NOTE | 2025-02-09 08:49 | PC.NURSE ---
0820 - Extubated @ this time to 3L via nasal cannula. Tolerating well, sat currently 99%.
[2025-02-09 08:53] LABS: Alanine Aminotransferase 90 U/L (12-78); Albumin Level 3.8 g/dl (3.5-5.0); Albumin/Globulin Ratio 1.6 (1.1-1.8); Alkaline Phosphatase 81 U/L (38-126); Anion Gap 13.1 mEq/L (5-15); Aspartate Amino Transferase 64 U/L (17-59); Bilirubin,Total 0.8 mg/dl (0.2-1.3); Blood Urea Nitrogen 19 mg/dl (9-20); Calcium 8.8 mg/dl (8.4-10.2); Carbon Dioxide 15 mmol/L (22.0-30.0); Chloride 117 mmol/L (98-107); Creatinine Clearance Estimated 66 mL/min (50-200); Creatinine,Serum 1.20 mg/dl (0.66-1.25); Estimated Glomerular Filt Rate 60 ml/min (>60); GFR (African American) 72 ML/MIN (>60); Globulin 2.4 g/dL (1.3-3.2); Glucose 119 mg/dl (74-100); Magnesium 2.3 mg/dl (1.6-2.3); Potassium 4.1 mmoL/L (3.5-5.1); Sodium 141 mmol/L (136-145); Total Protein,Serum 6.2 g/dl (6.3-8.2)
--- NOTE | 2025-02-09 10:43 | EXP.CARD.PN ---
Subjective Subjective Date: 02/09/25 Time: 08:00 Principal diagnosis: Cardiac arrest Interval history: Patient is status post extubation. Awake and alert. Denies complaints this morning. Morning labs reviewed. Exam Data for Last 24 hours Vital signs and Labs for Last 24 Hours: Temp Pulse Resp BP Pulse Ox O2 Del Method O2 Flow Rate 100.6 F H 95 H 21 129/67 98 Nasal Cannula 3 02/09/25 09:00 02/09/25 09:00 02/09/25 09:00 02/09/25 09:00 02/09/25 09:00 02/09/25 09:00 02/09/25 09:00 FiO2 35 02/09/25 08:00 Laboratory Results - last 24 hr 02/08/25 14:29: POC Glucose 132 H 02/08/25 17:13: POC Glucose 135 H 02/08/25 19:56: POC Glucose 135 H 02/09/25 05:47: POC Glucose 138 H 02/09/25 07:36: WBC 12.1 H, RBC 4.59 L, Hgb 13.8 L, Hct 42.1, MCV 91.7, MCH 30.1, MCHC 32.8, RDW 13.2, Plt Count 144, MPV 11.3 H, Neut % (Auto) 83.5 H, Lymph % (Auto) 6.9 L, [place] % (Auto) 8.8, Eos % (Auto) 0.2, Baso % (Auto) 0.2, Neut # (Auto) 10.1 H, Lymph # (Auto) 0.8, [place] # (Auto) 1.1 H, Eos # (Auto) 0.0, Baso # (Auto) 0.0, Sodium 141, Potassium 4.1, Chloride 117 H, Carbon Dioxide 15 L, Anion Gap 13.1, BUN 19, Creatinine 1.20, Estimated Creat Clear 66, Estimated GFR 60, Est GFR ( Amer) 72, Glucose 119 H, Calcium 8.8, Magnesium 2.3, Total Bilirubin 0.8, AST 64 H D, ALT 90 H, Alkaline Phosphatase 81, Total Protein 6.2 L, Albumin 3.8, Globulin 2.4, Albumin/Globulin Ratio 1.6 I & O for Last 24 hours: Intake & Output 02/06/25 02/07/25 02/08/25 02/09/25 23:59 23:59 23:59 23:59 Intake Total 1120.333 / 9161.014 3456.089 / 1864.089 439.517 / 439.517 Output Total 547 / 1047 1900 / 2150 1175 / 1175 Balance 573.333 / 73.333 -35.911 / -285.911 -735.483 / -735.483 Weight 180 lb 181 lb 10.574 oz 182 lb 12.211 oz Microbiology Reports for the Last 24 Hours: Microbiology 02/07/25 17:50 Anus CRE Surveillance Culture - Final Negative 02/07/25 Unknown Sputum - Endotracheal Tube Aspirate Gram Stain - Final 02/07/25 Unknown Sputum - Endotracheal Tube Aspirate Sputum Culture - Preliminary Constitutional Constitutional: no acute distress Routine Chest/Breast/Axilla Exam Comments: Left chest wall AICD site: Dry dressing intact. Bruising and minimal swelling is present. *Routine Respiratory Exam Respiratory: Present CTA bilaterally and symmetric chest movement *Routine Cardiovascular Exam Cardiovascular: Present RRR, Normal S1 and Normal S2 *Routine Abdominal Exam Abdominal: Present soft and normoactive bowel sounds; Absent tenderness *Routine Extremities Exam Extremities: Present full ROM and normal capillary refill; Absent edema Comments: Right groin site: Dressing is dry and intact. Minimal bruising or swelling noted. *Routine Skin Exam Skin: Present intact, dry and warm Detailed Neck Exam: Thyroids Thyroid: Absent bruit Progress Note: A&P Assessment and plan (1) Ventricular fibrillation: Status: Acute (2) Cardiac arrest: Status: Acute (3) Complete heart block: Status: Acute (4) On mechanically assisted ventilation: Status: Acute (5) NSTEMI (non-ST elevated myocardial infarction): Status: Acute (6) Atrial flutter: Status: Acute (7) History of aortic valve replacement with bioprosthetic valve: Status: Acute Assessment and Plan Assessment and Plan for All Diagnoses:: Status postcardiac arrest Witnessed V-fib arrest Witnessed arrest, ROSC achieved in field. Left heart catheterization performed yesterday which showed nonocclusive coronary artery disease with moderate disease in the mid dominant RCA Start Atorvastatin 40mg po daily when liver enzymes return to baseline A-fib flutter on presentation S/p AICD placement for vfib arrest History of bioprosthetic aortic valve Echo- EF of 50%, mild biatrial dilation, status post AVR. KIMMY/Cardioversion yesterday s/p AICD placement yesterday-v pacing today Start toprol 25mg po daily Start xarelto 20mg po daily
[2025-02-09] MEDS: LACTATED RINGERS 1000ML 500 ML IV (11:36)
[2025-02-09 11:38] LABS: POC Glucose,Bedside 134 gm/dL (70-110)
--- NOTE | 2025-02-09 12:44 | PC.NURSE ---
Speech Therapy not available for bedside swallow eval. Dr. Harvey notified of this and gave okay to proceed w/ bedside swallow eval performed by nursing staff. Thin liquids (water) given w/o difficulty. Pudding given w/o difficulty. Nutrigrain bar given w/o difficulty. Pt had no difficulty chewing/swallowing food. No s/s of aspiration. Pt to be placed on cardiac diet w/o restrictions.
[2025-02-09] MEDS: CEFTRIAXONE 1 GM 1 GM in 0.9 % SODIUM CHLORIDE 50 ML IV (13:00)
--- NOTE | 2025-02-09 13:00 | PC.NURSE ---
Speech Therapy not available for bedside swallow eval. Dr. Harvey notified of this and gave okay to proceed w/ bedside swallow eval performed by nursing staff. Thin liquids (water) given w/o difficulty. Pudding given w/o difficulty. Nutrigrain bar given w/o difficulty. Pt had no difficulty chewing/swallowing food. No s/s of aspiration.
--- NOTE | 2025-02-09 13:28 | ECG_ITS ---
APPROVED REPORT Exam: Resting ECG HR:103 bpm ECG Measurements Heart Rate 103 AXES OR 214 P 30 QRSd 173 QRS -44 QT 384 T 88 QTc 443 Conclusion ELECTRONIC VENTRICULAR PACEMAKER ABNORMAL RHYTHM ECG UNCONFIRMED REPORT Electronically signed by : Ford Collazo MD 02/11/2025 08:50:41
[2025-02-09 13:41] LABS: Adenovirus,PCR Not Detected (NotDetected); Chlamydophila Pneumoniae, PCR Not Detected (NotDetected); Coronavirus 19, PCR Not Detected (NotDetected); Coronovirus HKU1,PCR Not Detected (NotDetected); Influenza A, PCR Not Detected (NotDetected); Influenza AH1, 2009 Not Detected (NotDetected); Influenza AH1, PCR Not Detected (NotDetected); Influenza AH3,PCR Not Detected (NotDetected); Influenza B, PCR Not Detected (NotDetected); Mycoplasma Pneumoniae, PCR Not Detected (NotDetected); Parainfluenza 1, PCR Not Detected (NotDetected); Parainfluenza 2, PCR Not Detected (NotDetected); Parainfluenza 3, PCR Not Detected (NotDetected); Parainfluenza 4, PCR Not Detected (NotDetected)
[2025-02-09 13:48] LABS: Vancomycin,Trough 12.9 ug/mL (5.0-10.0)
[2025-02-09] MEDS: PHA TO NURSING INSTRUCTION 1 EACH NOTAPPLIC (14:38)
[2025-02-09] MEDS: VANCOMYCIN/WATER FOR INJ (PEG) 1.5 GM/300 ML PIGGYBACK IV (14:40)
[2025-02-09] MEDS: METOPROLOL SUCCINATE XL 25MG TABLET 25 MG PO (14:41)
[2025-02-09] MEDS: PIPERCILLIN/TAZO 3.375 GM in 0.9 % SODIUM CHLORIDE 50 ML IV ×2 (14:41→20:36)
--- NOTE | 2025-02-09 14:51 | EXP.PHA.CONS ---
Pharmacy Consult Date: 02/09/25 Time: 14:51 Referring provider: DR. BARFIELD Reason for Consult:: VANCOMYCIN LEVEL Allergies Allergy/AdvReac Type Severity Reaction Status Date / Time No Known Allergies Allergy Unverified 02/08/25 07:15 Home Medications ?Medication ?Instructions ?Recorded ?Confirmed ?Type No Known Home Medications 02/07/25 02/07/25 History New Prescriptions to Start Prescriptions: Height: 1.73 m Weight: 82.9 kg Laboratory Results:: Laboratory Results - last 24 hr 02/08/25 17:13: POC Glucose 135 H 02/08/25 19:56: POC Glucose 135 H 02/09/25 05:47: POC Glucose 138 H 02/09/25 07:36: WBC 12.1 H, RBC 4.59 L, Hgb 13.8 L, Hct 42.1, MCV 91.7, MCH 30.1, MCHC 32.8, RDW 13.2, Plt Count 144, MPV 11.3 H, Neut % (Auto) 83.5 H, Lymph % (Auto) 6.9 L, [place] % (Auto) 8.8, Eos % (Auto) 0.2, Baso % (Auto) 0.2, Neut # (Auto) 10.1 H, Lymph # (Auto) 0.8, [place] # (Auto) 1.1 H, Eos # (Auto) 0.0, Baso # (Auto) 0.0, Sodium 141, Potassium 4.1, Chloride 117 H, Carbon Dioxide 15 L, Anion Gap 13.1, BUN 19, Creatinine 1.20, Estimated Creat Clear 66, Estimated GFR 60, Est GFR ( Amer) 72, Glucose 119 H, Calcium 8.8, Magnesium 2.3, Total Bilirubin 0.8, AST 64 H D, ALT 90 H, Alkaline Phosphatase 81, Total Protein 6.2 L, Albumin 3.8, Globulin 2.4, Albumin/Globulin Ratio 1.6 02/09/25 11:29: POC Glucose 134 H 02/09/25 12:38: Lactate 1.6, Vancomycin Trough 12.9 H Medical History: Medical History (Updated 02/08/25 @ 10:46 by Maria D Hernández MD) CAP (community acquired pneumonia) Assessment and Plan Assessment and plan all Dx Assessment and Plan for all problems:: PATIENT VANCOMYCIN TROUGH LEVEL 12.9 MCG/ML TODAY. RECOMMEND PATIENT CONTINUES WITH VANCOMYCIN 1500 MG Q18H AT THIS TIME.
--- NOTE | 2025-02-09 15:32 | EXP.PN ---
Subjective *Date: 02/09/25 *Time: 15:32 Interval history: Patient was successfully extubated today, doing quite well. Alert and oriented x 4. Tolerating clear liquid diets. Very conversational. Follow-up PT OT recommendations the morning. Continue broad-spectrum antibiotics for sepsis. Exam Data for Last 24 hours Vital signs and Labs for Last 24 Hours: Temp Pulse Resp BP Pulse Ox O2 Del Method O2 Flow Rate 100.6 F H 97 H 29 H 136/66 95 Room Air 3 02/09/25 14:00 02/09/25 15:00 02/09/25 15:00 02/09/25 15:00 02/09/25 15:00 02/09/25 15:00 02/09/25 12:00 FiO2 35 02/09/25 08:00 Laboratory Results - last 24 hr 02/08/25 17:13: POC Glucose 135 H 02/08/25 19:56: POC Glucose 135 H 02/09/25 05:47: POC Glucose 138 H 02/09/25 07:36: WBC 12.1 H, RBC 4.59 L, Hgb 13.8 L, Hct 42.1, MCV 91.7, MCH 30.1, MCHC 32.8, RDW 13.2, Plt Count 144, MPV 11.3 H, Neut % (Auto) 83.5 H, Lymph % (Auto) 6.9 L, [place] % (Auto) 8.8, Eos % (Auto) 0.2, Baso % (Auto) 0.2, Neut # (Auto) 10.1 H, Lymph # (Auto) 0.8, [place] # (Auto) 1.1 H, Eos # (Auto) 0.0, Baso # (Auto) 0.0, Sodium 141, Potassium 4.1, Chloride 117 H, Carbon Dioxide 15 L, Anion Gap 13.1, BUN 19, Creatinine 1.20, Estimated Creat Clear 66, Estimated GFR 60, Est GFR ( Amer) 72, Glucose 119 H, Calcium 8.8, Magnesium 2.3, Total Bilirubin 0.8, AST 64 H D, ALT 90 H, Alkaline Phosphatase 81, Total Protein 6.2 L, Albumin 3.8, Globulin 2.4, Albumin/Globulin Ratio 1.6 02/09/25 11:29: POC Glucose 134 H 02/09/25 12:38: Lactate 1.6, Vancomycin Trough 12.9 H I & O for Last 24 hours: Intake & Output 02/06/25 02/07/25 02/08/25 02/09/25 23:59 23:59 23:59 23:59 Intake Total 1120.333 / 4835.505 0014.089 / 3257.398 8052.517 / 1289.517 Output Total 547 / 1047 1900 / 2150 1825 / 1825 Balance 573.333 / 73.333 -35.911 / -285.911 -535.483 / -535.483 Weight 81.647 kg 82.4 kg 82.9 kg Microbiology Reports for the Last 24 Hours: Microbiology 02/07/25 17:50 Anus CRE Surveillance Culture - Final Negative 02/07/25 Unknown Sputum - Endotracheal Tube Aspirate Gram Stain - Final 02/07/25 Unknown Sputum - Endotracheal Tube Aspirate Sputum Culture - Preliminary Constitutional Constitutional: no acute distress Routine Chest/Breast/Axilla Exam Comments: Left chest wall AICD site: Dry dressing intact. Bruising and minimal swelling is present. *Routine Respiratory Exam Respiratory: Present CTA bilaterally and symmetric chest movement *Routine Cardiovascular Exam Cardiovascular: Present RRR, Normal S1 and Normal S2 *Routine Abdominal Exam Abdominal: Present soft and normoactive bowel sounds; Absent tenderness *Routine Extremities Exam Extremities: Present full ROM and normal capillary refill; Absent edema Comments: Right groin site: Dressing is dry and intact. Minimal bruising or swelling noted. *Routine Skin Exam Skin: Present intact, dry and warm Detailed Neck Exam: Thyroids Thyroid: Absent bruit Assessment and Plan *Assessment and plan (1) Ventricular fibrillation: Status: Acute Category: Medical Code(s): I49.01 - Ventricular fibrillation (2) Cardiac arrest: Status: Acute Category: Medical Code(s): I46.9 - Cardiac arrest, cause unspecified (3) Complete heart block: Status: Acute Category: Medical Code(s): I44.2 - Atrioventricular block, complete (4) On mechanically assisted ventilation: Status: Acute Category: Medical Code(s): Z99.11 - Dependence on respirator [ventilator] status (5) NSTEMI (non-ST elevated myocardial infarction): Status: Acute Category: Medical Code(s): I21.4 - Non-ST elevation (NSTEMI) myocardial infarction (6) Atrial flutter: Status: Acute Category: Medical Code(s): I48.92 - Unspecified atrial flutter (7) History of aortic valve replacement with bioprosthetic valve: Status: Acute Category: Surgical Code(s): Z95.3 - Presence of xenogenic heart valve Plan Mr. Burns is a 69-year-old male who had a witnessed arrest at the grocery store. He was resuscitated by arrival to the ER. Found to be in complete heart block with NSTEMI. Patient taken urgently to the [facility] for intervention with placement of transvenous pacer on 02/07/2025. Case discussed with ER physician and digital print operator, request admission for further management after placement of pacemaker. #Cardiac arrest due to ventricular fibrillation with complete heart block #Type II NSTEMI #Mechanical ventilation, resolved - Witnessed arrest on 02/07/2025. Achieved resuscitation. Found to be in heart block per review of EKG. ? Initially transvenously paced, started Rafa subsequently placed AICD on 02/08/2025 with ventricular pacing with base HR 60 bpm. ? LHC on 02/08/2025 did not show occlusive disease, KIMMY with cardioversion for A-fib to NSR. ? Echo- EF of 50%, mild biatrial dilation, status post AVR. ? Extubated on 02/09/2025, patient alert and oriented x 4. Tolerating clear liquid diet. ? Discussed with cardiology, started metoprolol succinate 25 mg, Xarelto 20 mg daily. ? PT/OT evaluation in the morning, pending recommendations. #Sepsis #Aspiration pneumonia ? Presented with bibasilar opacities on CTA chest with leukocytosis. ? Patient now having fevers up to 101.3, with tachycardia and leukocytosis. ? Repeat CXR shows left perihilar and left basilar opacities. ? Started Zosyn 3.375 g every 6 hours, continue vancomycin renally dosed. ? Follow-up sputum, blood cultures. ? Follow-up morning CBC, procalcitonin, CRP. A-flutter Bioprosthetic aortic valve ?Metoprolol succinate 25 mg, Xarelto 20 mg daily. V-paced rate controlled at this time. Full code DVT prophylaxis: Xarelto
--- NOTE | 2025-02-09 15:45 | PC.NURSE ---
Pt assisted up to chair w/ minimal standby assistance from staff. Tolerated well. Remains on room air, w/ no s/s of resp distress. Call jones w/in reach. No further needs voiced @ this time. POC ongoing.
[2025-02-09] MEDS: KETOROLAC 15MG/ML VIAL 15 MG IV (15:57)
[2025-02-09 16:25] LABS: POC Glucose,Bedside 143 gm/dL (70-110)
--- NOTE | 2025-02-09 16:25 | PC.NURSE ---
1609 - Reached out to Dr. Harvey w/ concern of pt's pacer site possibly being infected. Order for bcx, aware that pt is already on abx prior to these bcx being drawn. 1616 - Dr. Craig notified of above findings as well. 1622 - Dr. Craig @ bedside assessing pt. No new orders @ this time. Pt is being treated w/ broad spectrum abx and provider will f/u in the AM unless pt needs attention prior to that.
[2025-02-09 19:02] LABS: C-Reactive Protein 215.0 mg/L (0-4)
[2025-02-09 19:14] LABS: Procalcitonin 0.418 ng/mL (0.0-2.0)
[2025-02-09 19:41] LABS: POC Glucose,Bedside 149 gm/dL (70-110)
[2025-02-09] MEDS: PANTOPRAZOLE 40MG VIAL 40 MG IV (20:39)
[2025-02-10] VITALS (9 sets, daily range): BP systolic 142–153; BP diastolic 83–96; PULSE 78–104; RESP 16–26; TEMP 36.6–37.2; O2SAT 94–98; BMI 27.5
[2025-02-10 02:14] LABS: MRSA DNA PCR Negative (Negative)
[2025-02-10] MEDS: PIPERCILLIN/TAZO 3.375 GM in 0.9 % SODIUM CHLORIDE 50 ML IV ×2 (03:32→08:12)
[2025-02-10] MEDS: IPRATROPIUM/ALBUTEROL 3 ML NEB IH (05:49)
[2025-02-10 06:01] LABS: POC Glucose,Bedside 133 gm/dL (70-110)
[2025-02-10 06:16] LABS: Hematocrit 33.1 % (42.0-52.0); Immature Granulocytes % 0.3 %; Mean Corpuscular HGB Conc 33.5 g/dL (31.8-35.4); Mean Corpuscular Hemoglobin 29.8 pg (27.0-31.2); Mean Corpuscular Volume 88.7 fl (80-94); Nucleated Red Blood Cells % 0 %; Platelet Count 139 K/mm3 (142-424); Red Blood Count 3.73 M/mm3 (4.60-6.20); Red Cell Distribution Width-SD 41.4 fL; White Blood Count 11.0 K/mm3 (4.8-10.8)
[2025-02-10 06:32] LABS: Alanine Aminotransferase 58 U/L (12-78); Albumin Level 3.8 g/dl (3.5-5.0); Albumin/Globulin Ratio 1.4 (1.1-1.8); Alkaline Phosphatase 78 U/L (38-126); Anion Gap 10.4 mEq/L (5-15); Aspartate Amino Transferase 47 U/L (17-59); Bilirubin,Total 1.3 mg/dl (0.2-1.3); Blood Urea Nitrogen 15 mg/dl (9-20); Calcium 8.7 mg/dl (8.4-10.2); Carbon Dioxide 19 mmol/L (22.0-30.0); Chloride 112 mmol/L (98-107); Creatinine Clearance Estimated 79 mL/min (50-200); Creatinine,Serum 1.00 mg/dl (0.66-1.25); Estimated Glomerular Filt Rate 74 ml/min (>60); GFR (African American) 89 ML/MIN (>60); Globulin 2.7 g/dL (1.3-3.2); Glucose 112 mg/dl (74-100); Magnesium 2.1 mg/dl (1.6-2.3); Potassium 3.4 mmoL/L (3.5-5.1); Sodium 138 mmol/L (136-145); Total Protein,Serum 6.5 g/dl (6.3-8.2)
[2025-02-10] MEDS: DOXYCYCLINE HYCLATE 100 MG in 0.9 % SODIUM CHLORIDE 250 ML 166.67 MG IV (06:45)
[2025-02-10 07:40] LABS: Hemoglobin 11.1 g/dL (14.1-18.0)
[2025-02-10 07:47] LABS: C-Reactive Protein 239.6 mg/L (0-4)
[2025-02-10] MEDS: METOPROLOL SUCCINATE XL 25MG TABLET 25 MG PO (08:12)
--- NOTE | 2025-02-10 08:46 | PC.NURSE ---
patients iv is occluded. Patient needs more antibiotics. Talked to Dr. Harvey about getting patient on po antibiotics. Wes wants staff to check with technical associate to see if he would want him to stay on iv antibiotics or he may switch the antibiotics all together.
--- NOTE | 2025-02-10 09:20 | EXP.CARD.PN ---
Subjective Subjective Date: 02/10/25 Time: 08:00 Principal diagnosis: Cardiac arrest Interval history: Doing well this morning. Patient sitting up in chair. Heart rate has improved with addition of Toprol. Morning labs reviewed and stable. Exam Data for Last 24 hours Vital signs and Labs for Last 24 Hours: Temp Pulse Resp BP Pulse Ox O2 Del Method O2 Flow Rate 98.9 F 100 H 22 142/84 H 95 Room Air 2 02/10/25 04:00 02/10/25 07:00 02/10/25 07:00 02/10/25 07:00 02/10/25 07:00 02/10/25 07:00 02/09/25 18:15 FiO2 35 02/09/25 08:00 Laboratory Results - last 24 hr 02/09/25 11:29: POC Glucose 134 H 02/09/25 12:38: Lactate 1.6, Vancomycin Trough 12.9 H 02/09/25 13:00: Chlamy pneumoniae PCR Not detected, Adenovirus (PCR) Not detected, B. pertussis DNA (PCR) Not detected, Coronavirus OC43 (PCR) Not detected, Coronavirus HKU1 (PCR) Not detected, Coronavirus 229E (PCR) Not detected, SARS-CoV-2 (PCR) Not detected, Coronavirus NL63 (PCR) Not detected, Human Metapneumovir PCR Not detected, Influenza A (H1) PCR Not detected, Influ A (H1N1/09) PCR Not detected, Influenza A (H3) PCR Not detected, Influenza Type A (PCR) Not detected, Influenza Type B (PCR) Not detected, M. pneumoniae (PCR) Not detected, Parainfluenza 1 (PCR) Not detected, Parainfluenza 2 (PCR) Not detected, Parainfluenza 3 (PCR) Not detected, Parainfluenza 4 (PCR) Not detected, RSV (PCR) Not detected, Entero/Rhino (PCR) Not detected, MRSA (PCR) Negative 02/09/25 16:07: POC Glucose 143 H 02/09/25 16:54: C-Reactive Protein 215.0 H, Procalcitonin 0.418 02/09/25 19:33: POC Glucose 149 H 02/10/25 05:24: WBC 11.0 H, RBC 3.73 L, Hgb 11.1 L D, Hct 33.1 L, MCV 88.7, MCH 29.8, MCHC 33.5, RDW 12.7, Plt Count 139 L, MPV 11.3 H, Neut % (Auto) 87.0 H, Lymph % (Auto) 5.8 L, [place] % (Auto) 6.2, Eos % (Auto) 0.5, Baso % (Auto) 0.2, Neut # (Auto) 9.6 H, Lymph # (Auto) 0.6 L, [place] # (Auto) 0.7, Eos # (Auto) 0.1, Baso # (Auto) 0.0, Sodium 138, Potassium 3.4 L, Chloride 112 H, Carbon Dioxide 19 L, Anion Gap 10.4, BUN 15, Creatinine 1.00, Estimated Creat Clear 79, Estimated GFR 74, Est GFR ( Amer) 89 D, Glucose 112 H, Calcium 8.7, Magnesium 2.1, Total Bilirubin 1.3, AST 47 D, ALT 58 D, Alkaline Phosphatase 78, C-Reactive Protein 239.6 H, Total Protein 6.5, Albumin 3.8, Globulin 2.7, Albumin/Globulin Ratio 1.4 02/10/25 05:44: POC Glucose 133 H I & O for Last 24 hours: Intake & Output 02/07/25 02/08/25 02/09/25 02/10/25 23:59 23:59 23:59 23:59 Intake Total 1120.333 / 8077.727 8641.089 / 0048.453 1595.517 / 2369.517 540 / 540 Output Total 547 / 1047 1900 / 2150 2350 / 2350 200 / 200 Balance 573.333 / 73.333 -35.911 / -285.911 19.517 / 19.517 340 / 340 Weight 180 lb 181 lb 10.574 oz 182 lb 12.211 oz 181 lb 7.047 oz Microbiology Reports for the Last 24 Hours: Microbiology 02/07/25 17:50 Anus CRE Surveillance Culture - Final Negative 02/07/25 Unknown Sputum - Endotracheal Tube Aspirate Gram Stain - Final 02/07/25 Unknown Sputum - Endotracheal Tube Aspirate Sputum Culture - Preliminary Constitutional Constitutional: no acute distress Routine Chest/Breast/Axilla Exam Comments: AICD site: No active bleeding noted. Bruising and minimal swelling present. *Routine Respiratory Exam Respiratory: Present CTA bilaterally and symmetric chest movement *Routine Cardiovascular Exam Cardiovascular: Present RRR, Normal S1 and Normal S2 *Routine Abdominal Exam Abdominal: Present soft and normoactive bowel sounds; Absent tenderness Comments: Right groin access point: Bruising noted. *Routine Extremities Exam Extremities: Present full ROM and normal capillary refill; Absent edema *Routine Skin Exam Skin: Present intact, dry and warm Detailed Neck Exam: Thyroids Thyroid: Absent bruit Progress Note: A&P Assessment and plan (1) Ventricular fibrillation: Status: Acute (2) Cardiac arrest: Status: Acute (3) Complete heart block: Status: Acute (4) On mechanically assisted ventilation: Status: Acute (5) NSTEMI (non-ST elevated myocardial infarction): Status: Acute (6) Atrial flutter: Status: Acute (7) History of aortic valve replacement with bioprosthetic valve: Status: Acute Assessment and Plan Assessment and Plan for All Diagnoses:: Status postcardiac arrest Witnessed V-fib arrest Witnessed arrest, ROSC achieved in field. Left heart catheterization performed yesterday which showed nonocclusive coronary artery disease with moderate disease in the mid dominant RCA Start Atorvastatin 40mg po daily A-fib flutter on presentation S/p AICD placement for vfib arrest History of bioprosthetic aortic valve Echo- EF of 50%, mild biatrial dilation, status post AVR. KIMMY/Cardioversion yesterday s/p AICD placement yesterday-v pacing today Continue toprol 25mg po daily Continue xarelto 20mg po daily Hypertension Continue metoprolol and irbesartan CV summary 02/10/2025: Patient is CV stable for discharge. Please continue below listed medications and have patient follow-up in cardiology clinic on Friday for reevaluation. Cardiac meds: Atorvastatin 40 mg p.o. daily Toprol 25 mg p.o. to 20 mg p.o. daily Irbesartan 75 mg p.o. daily
--- NOTE | 2025-02-10 09:24 | P.PN_ITS ---
Subjective *Date: 02/10/25 *Time: 11:00 Interval history: No acute respiratory vents overnight. Patient admits significant improvement in his respiratory symptoms. Pulmonology Exam Inpatient Vital signs and Labs for Last 24 Hours: Temp Pulse Resp BP Pulse Ox O2 Del Method O2 Flow Rate 98.9 F 100 H 22 142/84 H 95 Room Air 2 02/10/25 04:00 02/10/25 07:00 02/10/25 07:00 02/10/25 07:00 02/10/25 07:00 02/10/25 07:00 02/09/25 18:15 FiO2 35 02/09/25 08:00 Laboratory Results - last 24 hr 02/09/25 11:29: POC Glucose 134 H 02/09/25 12:38: Lactate 1.6, Vancomycin Trough 12.9 H 02/09/25 13:00: Chlamy pneumoniae PCR Not detected, Adenovirus (PCR) Not detected, B. pertussis DNA (PCR) Not detected, Coronavirus OC43 (PCR) Not detected, Coronavirus HKU1 (PCR) Not detected, Coronavirus 229E (PCR) Not detected, SARS-CoV-2 (PCR) Not detected, Coronavirus NL63 (PCR) Not detected, Human Metapneumovir PCR Not detected, Influenza A (H1) PCR Not detected, Influ A (H1N1/09) PCR Not detected, Influenza A (H3) PCR Not detected, Influenza Type A (PCR) Not detected, Influenza Type B (PCR) Not detected, M. pneumoniae (PCR) Not detected, Parainfluenza 1 (PCR) Not detected, Parainfluenza 2 (PCR) Not detected, Parainfluenza 3 (PCR) Not detected, Parainfluenza 4 (PCR) Not detected, RSV (PCR) Not detected, Entero/Rhino (PCR) Not detected, MRSA (PCR) Negative 02/09/25 16:07: POC Glucose 143 H 02/09/25 16:54: C-Reactive Protein 215.0 H, Procalcitonin 0.418 02/09/25 19:33: POC Glucose 149 H 02/10/25 05:24: WBC 11.0 H, RBC 3.73 L, Hgb 11.1 L D, Hct 33.1 L, MCV 88.7, MCH 29.8, MCHC 33.5, RDW 12.7, Plt Count 139 L, MPV 11.3 H, Neut % (Auto) 87.0 H, Lymph % (Auto) 5.8 L, [place] % (Auto) 6.2, Eos % (Auto) 0.5, Baso % (Auto) 0.2, Neut # (Auto) 9.6 H, Lymph # (Auto) 0.6 L, [place] # (Auto) 0.7, Eos # (Auto) 0.1, Baso # (Auto) 0.0, Sodium 138, Potassium 3.4 L, Chloride 112 H, Carbon Dioxide 19 L, Anion Gap 10.4, BUN 15, Creatinine 1.00, Estimated Creat Clear 79, Estimated GFR 74, Est GFR ( Amer) 89 D, Glucose 112 H, Calcium 8.7, Magnesium 2.1, Total Bilirubin 1.3, AST 47 D, ALT 58 D, Alkaline Phosphatase 78, C-Reactive Protein 239.6 H, Total Protein 6.5, Albumin 3.8, Globulin 2.7, Albumin/Globulin Ratio 1.4 02/10/25 05:44: POC Glucose 133 H I & O for Labs for Last 24 Hours: Intake & Output 02/07/25 02/08/25 02/09/25 02/10/25 23:59 23:59 23:59 23:59 Intake Total 1120.333 / 3641.910 1732.089 / 2070.434 5820.517 / 2369.517 540 / 540 Output Total 547 / 1047 1900 / 2150 2350 / 2350 200 / 200 Balance 573.333 / 73.333 -35.911 / -285.911 19.517 / 19.517 340 / 340 Weight 180 lb 181 lb 10.574 oz 182 lb 12.211 oz 181 lb 7.047 oz Microbiology Reports for the Last 24 Hours: Microbiology 02/07/25 17:50 Anus CRE Surveillance Culture - Final Negative 02/07/25 Unknown Sputum - Endotracheal Tube Aspirate Gram Stain - Final 02/07/25 Unknown Sputum - Endotracheal Tube Aspirate Sputum Culture - Preliminary Constitutional: Present mild distress Head: Present normocephalic and atraumatic ENT: Present normal exam, normal oropharynx and mucous membranes moist Neck: Present normal inspection and full ROM Respiratory: Present normal respiratory effort and able to speak in complete sentences; Absent respiratory distress, wheezes or crackles Cardiac: Present S1/S2, Tachycardia and radial pulses present GI: Present soft and distention; Absent tenderness or guarding Skin: Present intact; Absent cyanosis or jaundice Neuro: Present alert, awake and oriented x 3 Extremities: Present normal inspection; Absent clubbing or cyanosis Psychiatric: Present normal affect and cooperative Assessment and Plan *Assessment and plan (1) CAP (community acquired pneumonia): Status: Acute Category: Medical Code(s): J18.9 - Pneumonia, unspecified organism Plan Mr. Burns is a 69-year-old man brought to the hospital after witnessed cardiac arrest needing intubation mechanical ventilatory support and pulmonary was called for further evaluation and management. Around 10-07-epmz-year smoking to last smoked greater than 20 years ago. No respiratory symptoms nor using any inhalers or oxygen supplementation at baseline. CTA upon admission no evidence of pulmonary embolism. Bilateral lower lobe airspace disease. No pleural effusions. Afebrile. Externally paced. Episodes of A-fib RVR. Mild neutrophilic predominant leukocytosis improving. Currently receiving vancomycin. Chest x-ray postintubation ET tube at the sravanthi pulled out by 2 cm. Blood gases has been reviewed and ventilator settings has been changed for metabolic alkalosis. Patient remains on minimal ventilator settings throughout these hospital stay, needed tube exchange for cuff leak, eventually extubated to nasal cannula and weaned to room air. Interval update: Continue to remain on room air. Hemodynamically stable. Blood cultures no growth. Tracheal aspirate cultures normal respiratory timbo. Chest x-ray from that was improving pulmonary infiltrates with no obvious evidence of dense consolidative changes Plan: Antibiotics can be weaned to cefdinir to complete a total of 5-day course from pulmonary standpoint # Thank you for involving pulmonary in this patient care. Will follow the patient in pulmonary clinic 2 to 4 weeks postdischarge.
--- NOTE | 2025-02-10 09:25 | XR_ITS ---
FINAL REPORT CLINICAL HISTORY: SOB COMPARISON: 02/08/2025 FINDINGS: The heart size is [id number] enlarged. Sternotomy wires are noted. There is a left-sided pacer. The patient has been extubated. Lungs are clear. There are no pleural effusions. There is no pneumothorax. There is no osseous abnormality. IMPRESSION: Interval extubation. [id number] cardiomegaly. Reviewed, Interpreted and Dictated by Gautam Moctezuma MD Transcribed by Sofi Guerra Authenticated and [facility]
--- NOTE | 2025-02-10 09:28 | HMH.PTEV ---
Physical Therapy Evaluation Rehab PT IP Evaluation Start: 02/07/25 19:46 Freq: ONCE Status: Active Protocol: Document 02/10/25 09:23 JOAQUIN (Rec: 02/10/25 09:28 JOAQUIN [id number]) Subjective/History History History Per H&P: 69-year-old male who had a witnessed arrest at [employer]. Resuscitation was performed for about 10 minutes. Received 2-3 shocks from defibrillator. Intubated prior to arrival. Had supraglottic airway. Found to be bradycardic. Taken urgently to Financial Manager for evaluation of cardiac arrest and complete heart block. Discussed case with cardiology after procedure, patient currently has transvenous pacing for his heart block. Sedated and intubated at this time. Will need admission to ICU for further management. Remainder of history known as follows: Appears to have bioprosthetic aortic valve. Has scar on lower abdomen consistent with previous appendectomy. Subjective Subjective Pt reports he lives with somebody in a SS home with 0 ÁNGEL Pt reports he is normally IND with all mobility without AD use. Pt denies any fall hx. Pt reports he still drives. [facility] How much help from another person do you currently need... Turning from your None back to your side while in a flat bed without using bedrails? Moving from lying on None back to sitting on the side of a flat bed without using bedrails? Moving to and from a None bed to a chair ( including a wheelchair)? Standing up from a None chair using your arms? (e.g., wheelchair, bedside chair) Walking in hospital None room? Climbing 3-5 steps A little with a railing? Mobility Score 23 Mobility Level [facility] Mobility 7 Walk 25 feet or more Mobility Calculator Rehab PT IP Eval Objective Appearance Patient Behavior Appropriate,Cooperative Patient Orientation Person Difficulty following none instructions Speech Pattern Clear Ambulation Patient Able to Yes Ambulate Ambulation Observation IP General Gait No Deviations/Normal Pattern Observation Ambulation Distance 20 (feet) Ambulation Assistive None Device Ambulation Ability Supervision/Stand by Balance Ability to Arise Able, uses arms to help Sitting Balance Steady, safe Standing Balance Steady, wide stance Dynamic Sitting Good Balance Ability Dynamic Standing Good Balance Ability Transfers Bed Transfer Ability Independent Sit to Stand Bed Supervision/Stand by Transfer Ability Rehab PT IP prob,goals,plan Problems Date of Evaluation: 11/20/25 Rehab Potential Rehab Potential Innapropriate for Skilled Therapy Discharge Plan PT Discharge Plan Pt presents IND/at baseline with functional mobility and is not appropriate for skilled acute level PT at this time. Eval Complexity Eval Charge Codes 64463 - Moderate Complexity PHYSICIAN CERTIFICATION: I certify the specified therapy services for Jimmy Burns are required, authorized, and reviewed every 30 days.
[2025-02-10] MEDS: VANCOMYCIN/WATER FOR INJ (PEG) 1.5 GM/300 ML PIGGYBACK IV (09:36)
--- NOTE | 2025-02-10 09:43 | HMH.OTEV ---
OT Evaluation Rehab OT IP Evaluation Start: 02/07/25 19:46 Freq: ONCE Status: Active Protocol: Document 02/10/25 09:38 LEON (Rec: 02/10/25 09:43 LEON [id number]) Rehab OT IP Assessment Subjective History Per HPI: *History of present illness: 69-year-old male who had a witnessed arrest at [employer]. Resuscitation was performed for about 10 minutes . Received 2-3 shocks from defibrillator. Intubated prior to arrival. Had supraglottic airway. Found to be bradycardic. Taken urgently to Siding Coreboard Inspector for evaluation of cardiac arrest and complete heart block. Discussed case with cardiology after procedure, patient currently has transvenous pacing for his heart block. Sedated and intubated at this time. Will need admission to ICU for further management. Remainder of history known as follows: Appears to have bioprosthetic aortic valve. Has scar on lower abdomen consistent with previous appendectomy. Unable to obtain any further history or review of systems. Subjective Oooo nice and comfy. Pt supine in bed when therapy arrived. Pt agreeable to OT eval this AM. Pt orient x3. Pt reported they live with friend in SS home with no steps to enter. Pt reported they still drive and are Ind in FM with no use of AD. Pt reported they have no hx of falls and are Ind in ADLs and IADLs. Pt reported they are retired. Pt agreed to FM task. Pt went from supine to EOB Ind. Pt then completed STS with SUP. Pt then completed FM task of aprox 10 ft with SUP/SBA. Pt then reported they wanted to sit in chair. Pt able to sit in chair using good body mechanics and safety. Pt left sitting in chair with call light and all other needs within reach. Objective Patient Orientation Person,Place,Birthday Right Upper WFL Extremity Gross ROM Left Upper Extremity WFL Gross ROM Bed Mobility bed mobility-scooting,bed mobility - supine/sit Assist Level Independent Transfer Training Sit/Stand Transfer Assist Level Supervision/Stand by Chair Transfer Independent Ability Chair Transfer Sit to/from Ambulatory Technique Chair Transfer None Assistive Devices Decrease in No Endurance Rehab OT IP prob,goals,plan Problems Date of Evaluation: 02/10/25 Rehab Potential Rehab Potential Innapropriate for Skilled Therapy Discharge Plan OT Discharge Plan At this time, pt is at baseline in functional occupational performance and would not benefit from skilled acute OT services while admitted at [facility]. Once medically stable pt is able to DC home w/ no services warranted. Eval Complexity Eval Charge Codes 75186 - Moderate Complexity PHYSICIAN CERTIFICATION: I certify the specified therapy services for Jimmy Burns are required, authorized, and reviewed every 30 days.
[2025-02-10] MEDS: IRBESARTAN 75MG TABLET 75 MG PO (09:51)
[2025-02-10] MEDS: POLYETHYLENE GLYCOL 3350 17 GM PACKET PO (09:51)
--- NOTE | 2025-02-10 10:36 | P.DS_ITS ---
General Admission date:: 02/07/25 HPI HPI HPI: 69-year-old male who had a witnessed arrest at [employer]. Resuscitation was performed for about 10 minutes. Received 2-3 shocks from defibrillator. Intubated prior to arrival. Had supraglottic airway. Found to be bradycardic. Taken urgently to [facility] [employer] [facility] [employer] for evaluation of cardiac arrest and complete heart block. Discussed case with cardiology after procedure, patient currently has transvenous pacing for his heart block. Sedated and intubated at this time. Will need admission to ICU for further management. Remainder of history known as follows: Appears to have bioprosthetic aortic valve. Has scar on lower abdomen consistent with previous appendectomy. Unable to obtain any further history or review of systems. Hospital Course Hospital Course Hospital Course: Mr. Burns is a 69-year-old male who had a witnessed arrest at the grocery store. He was resuscitated by arrival to the ER. Found to be in complete heart block with NSTEMI. Patient taken urgently to the [facility] [employer] for intervention with placement of transvenous pacer on 02/07/2025. Case discussed with ER physician and labor supervisor, request admission for further management after placement of pacemaker. #Cardiac arrest due to ventricular fibrillation with complete heart block #Type II NSTEMI #Mechanical ventilation, resolved - Witnessed arrest on 02/07/2025. Achieved resuscitation. Found to be in heart block per review of EKG. ? Initially transvenously paced, Dr. Craig subsequently placed AICD on 02/08/2025 with ventricular pacing with base HR of 60 bpm. ? LHC on 02/08/2025 did not show occlusive disease, KIMMY with cardioversion for A-fib to NSR. ? Echo- EF of 50%, mild biatrial dilation, status post AVR. ? Extubated on 02/09/2025, patient alert and oriented x 4. Very conversational, pleasant. Does not recall much of the event that precipitated cardiac arrest. Tolerating clear liquid diet, ambulating independently. ? Discussed with cardiology, discharged metoprolol succinate 25 mg, Eliquis 5 mg twice daily. ? Will follow-up with cardiology within 1 week. #Sepsis #Aspiration pneumonia ? Presented with bibasilar opacities on CTA chest with leukocytosis. Had fevers as high as 101.3, tachycardia and leukocytosis from admission. ? Improved with IV vancomycin, Zosyn. Discussed with pulmonology, recommended weaning to cefdinir for total of 5 days. ? Discharged with cefdinir 300 mg twice daily for 3 more days. #Hypertension ? Started irbesartan 75 mg daily. A-flutter, new onset Bioprosthetic aortic valve ?[facility] on 02/08/2025 did not show occlusive disease, KIMMY with cardioversion for A- fib to NSR. ? Discussed with cardiology, discharged metoprolol succinate 25 mg, Eliquis 5 mg twice daily. V-paced rate controlled at this time. Total time spent on discharge: 35 minutes on chart review, counseling, documentation, and direct care with patient. Exam Data for Last 24 hours Vital signs and Labs for Last 24 Hours: Temp Pulse Resp BP Pulse Ox O2 Del Method O2 Flow Rate 97.9 F 104 H 16 151/96 H 98 Room Air 2 02/10/25 09:00 02/10/25 09:00 02/10/25 09:00 02/10/25 09:00 02/10/25 09:00 02/10/25 09:00 02/09/25 18:15 FiO2 35 02/09/25 08:00 Laboratory Results - last 24 hr 02/09/25 11:29: POC Glucose 134 H 02/09/25 12:38: Lactate 1.6, Vancomycin Trough 12.9 H 02/09/25 13:00: Chlamy pneumoniae PCR Not detected, Adenovirus (PCR) Not detected, B. pertussis DNA (PCR) Not detected, Coronavirus OC43 (PCR) Not detected, Coronavirus HKU1 (PCR) Not detected, Coronavirus 229E (PCR) Not detected, SARS-CoV-2 (PCR) Not detected, Coronavirus NL63 (PCR) Not detected, Human Metapneumovir PCR Not detected, Influenza A (H1) PCR Not detected, Influ A (H1N1/09) PCR Not detected, Influenza A (H3) PCR Not detected, Influenza Type A (PCR) Not detected, Influenza Type B (PCR) Not detected, M. pneumoniae (PCR) Not detected, Parainfluenza 1 (PCR) Not detected, Parainfluenza 2 (PCR) Not d etected, Parainfluenza 3 (PCR) Not detected, Parainfluenza 4 (PCR) Not detected, RSV (PCR) Not detected, Entero/Rhino (PCR) Not detected, MRSA (PCR) Negative 02/09/25 16:07: POC Glucose 143 H 02/09/25 16:54: C-Reactive Protein 215.0 H, Procalcitonin 0.418 02/09/25 19:33: POC Glucose 149 H 02/10/25 05:24: WBC 11.0 H, RBC 3.73 L, Hgb 11.1 L D, Hct 33.1 L, MCV 88.7, MCH 29.8, MCHC 33.5, RDW 12.7, Plt Count 139 L, MPV 11.3 H, Neut % (Auto) 87.0 H, Lymph % (Auto) 5.8 L, [place] % (Auto) 6.2, Eos % (Auto) 0.5, Baso % (Auto) 0.2, Neut # (Auto) 9.6 H, Lymph # (Auto) 0.6 L, [place] # (Auto) 0.7, Eos # (Auto) 0.1, Baso # (Auto) 0.0, Sodium 138, Potassium 3.4 L, Chloride 112 H, Carbon Dioxide 19 L, Anion Gap 10.4, BUN 15, Creatinine 1.00, Estimated Creat Clear 79, Estimated GFR 74, Est GFR ( Amer) 89 D, Glucose 112 H, Calcium 8.7, Magnesium 2.1, Total Bilirubin 1.3, AST 47 D, ALT 58 D, Alkaline Phosphatase 78, C-Reactive Protein 239.6 H, Total Protein 6.5, Albumin 3.8, Globulin 2.7, Albumin/Globulin Ratio 1.4 02/10/25 05:44: POC Glucose 133 H I & O for Last 24 hours: Intake & Output 02/07/25 02/08/25 02/09/25 02/10/25 23:59 23:59 23:59 23:59 Intake Total 1120.333 / 9848.158 2655.089 / 8522.243 2070.517 / 2369.517 1250 / 1250 Output Total 547 / 1047 1900 / 2150 2350 / 2350 650 / 650 Balance 573.333 / 73.333 -35.911 / -285.911 .517 / 600 / 600 Weight 81.647 kg 82.4 kg 82.9 kg 82.3 kg Microbiology Reports for the Last 24 Hours: Microbiology 02/07/25 Unknown Sputum - Endotracheal Tube Aspirate Gram Stain - Final 02/07/25 Unknown Sputum - Endotracheal Tube Aspirate Sputum Culture - Final 02/07/25 17:50 Anus CRE Surveillance Culture - Final Negative Constitutional Constitutional: no acute distress Routine Chest/Breast/Axilla Exam Comments: AICD site: No active bleeding noted. Bruising and minimal swelling present. *Routine Respiratory Exam Respiratory: Present CTA bilaterally and symmetric chest movement *Routine Cardiovascular Exam Cardiovascular: Present RRR, Normal S1 and Normal S2 *Routine Abdominal Exam Abdominal: Present soft and normoactive bowel sounds; Absent tenderness Comments: Right groin access point: Bruising noted. *Routine Extremities Exam Extremities: Present full ROM and normal capillary refill; Absent edema *Routine Skin Exam Skin: Present intact, dry and warm Detailed Neck Exam: Thyroids Thyroid: Absent bruit Results Data Completed and Pending Labs on day of discharge: Labs from last 24 hours 02/10/25 02/10/25 02/09/25 05:44 05:24 19:33 WBC 11.0 H RBC 3.73 L Hgb 11.1 L D Hct 33.1 L MCV 88.7 MCH 29.8 MCHC 33.5 RDW 12.7 Plt Count 139 L MPV 11.3 H Neut % (Auto) 87.0 H Lymph % (Auto) 5.8 L [place] % (Auto) 6.2 Eos % (Auto) 0.5 Baso % (Auto) 0.2 Neut # (Auto) 9.6 H Lymph # (Auto) 0.6 L [place] # (Auto) 0.7 Eos # (Auto) 0.1 Baso # (Auto) 0.0 Sodium 138 Potassium 3.4 L Chloride 112 H Carbon Dioxide 19 L Anion Gap 10.4 BUN 15 Creatinine 1.00 Estimated Creat Clear 79 Estimated GFR 74 Est GFR ( Amer) 89 D Glucose 112 H POC Glucose 133 H 149 H Lactate Calcium 8.7 Magnesium 2.1 Total Bilirubin 1.3 AST 47 D ALT 58 D Alkaline Phosphatase 78 C-Reactive Protein 239.6 H Total Protein 6.5 Albumin 3.8 Globulin 2.7 Albumin/Globulin Ratio 1.4 Procalcitonin Vancomycin Trough Chlamy pneumoniae PCR Adenovirus (PCR) B. pertussis DNA (PCR) Coronavirus OC43 (PCR) Coronavirus HKU1 (PCR) Coronavirus 229E (PCR) SARS-CoV-2 (PCR) Coronavirus NL63 (PCR) Human Metapneumovir PCR Influenza A (H1) PCR Influ A (H1N1/09) PCR Influenza A (H3) PCR Influenza Type A (PCR) Influenza Type B (PCR) M. pneumoniae (PCR) Parainfluenza 1 (PCR) Parainfluenza 2 (PCR) Parainfluenza 3 (PCR) Parainfluenza 4 (PCR) RSV (PCR) Entero/Rhino (PCR) MRSA (PCR) 02/09/25 02/09/25 02/09/25 16:54 16:07 13:00 WBC RBC Hgb Hct MCV MCH MCHC RDW Plt Count MPV Neut % (Auto) Lymph % (Auto) [place] % (Auto) Eos % (Auto) Baso % (Auto) Neut # (Auto) Lymph # (Auto) [place] # (Auto) Eos # (Auto) Baso # (Auto) Sodium Potassium Chloride Carbon Dioxide Anion Gap BUN Creatinine Estimated Creat Clear Estimated GFR Est GFR ( Amer) Glucose POC Glucose 143 H Lactate Calcium Magnesium Total Bilirubin AST ALT Alkaline Phosphatase C-Reactive Protein 215.0 H Total Protein Albumin Globulin Albumin/Globulin Ratio Procalcitonin 0.418 Vancomycin Trough Chlamy pneumoniae PCR Not detected Adenovirus (PCR) Not detected B. pertussis DNA (PCR) Not detected Coronavirus OC43 (PCR) Not detected Coronavirus HKU1 (PCR) Not detected Coronavirus 229E (PCR) Not detected SARS-CoV-2 (PCR) Not detected Coronavirus NL63 (PCR) Not detected Human Metapneumovir PCR Not detected Influenza A (H1) PCR Not detected Influ A (H1N1/09) PCR Not detected Influenza A (H3) PCR Not detected Influenza Type A (PCR) Not detected Influenza Type B (PCR) Not detected M. pneumoniae (PCR) Not detected Parainfluenza 1 (PCR) Not detected Parainfluenza 2 (PCR) Not detected Parainfluenza 3 (PCR) Not detected Parainfluenza 4 (PCR) Not detected RSV (PCR) Not detected Entero/Rhino (PCR) Not detected MRSA (PCR) Negative 02/09/25 02/09/25 12:38 11:29 WBC RBC Hgb Hct MCV MCH MCHC RDW Plt Count MPV Neut % (Auto) Lymph % (Auto) [place] % (Auto) Eos % (Auto) Baso % (Auto) Neut # (Auto) Lymph # (Auto) [place] # (Auto) Eos # (Auto) Baso # (Auto) Sodium Potassium Chloride Carbon Dioxide Anion Gap BUN Creatinine Estimated Creat Clear Estimated GFR Est GFR ( Amer) Glucose POC Glucose 134 H Lactate 1.6 Calcium Magnesium Total Bilirubin AST ALT Alkaline Phosphatase C-Reactive Protein Total Protein Albumin Globulin Albumin/Globulin Ratio Procalcitonin Vancomycin Trough 12.9 H Chlamy pneumoniae PCR Adenovirus (PCR) B. pertussis DNA (PCR) Coronavirus OC43 (PCR) Coronavirus HKU1 (PCR) Coronavirus 229E (PCR) SARS-CoV-2 (PCR) Coronavirus NL63 (PCR) Human Metapneumovir PCR Influenza A (H1) PCR Influ A (H1N1/09) PCR Influenza A (H3) PCR Influenza Type A (PCR) Influenza Type B (PCR) M. pneumoniae (PCR) Parainfluenza 1 (PCR) Parainfluenza 2 (PCR) Parainfluenza 3 (PCR) Parainfluenza 4 (PCR) RSV (PCR) Entero/Rhino (PCR) MRSA (PCR) DS: Diagnosis Discharge Diagnosis (1) CAP (community acquired pneumonia): Status: Acute Code(s): J18.9 - Pneumonia, unspecified organism Meds Home Medications and Allergies Home Medications ?Medication ?Instructions ?Recorded ?Confirmed ?Type apixaban 5 mg tablet (Eliquis) 5 mg PO BID #30 tabs Rx atorvastatin 40 mg tablet 40 mg PO HS 30 days #30 tabs 02/10/25 Rx cefdinir 300 mg capsule 300 mg PO BID 3 days #6 caps 02/10/25 Rx irbesartan 75 mg tablet 75 mg PO DAILY 30 days #30 t abs 02/10/25 Rx metoprolol succinate 25 mg 25 mg PO DAILY 30 days #30 tabs 02/10/25 Rx tablet,extended release 24 hr New Prescriptions to Start Prescriptions: apixaban [Eliquis] Yessi Durand atorvastatin Wes,Murphy cefdinir Wes,Murphy irbesartan Wes,Murphy metoprolol succinate Murphy Harvey Allergies Allergy/AdvReac Type Severity Reaction Status Date / Time No Known Allergies Allergy Unverified 02/08/25 07:15 Discharge Plan Disposition Patient Disposition: Home, Self-Care Condition: Fair Discharge Order Discharge Orders: Discharge Order (Routine); Ordered 02/10/25 Ordered By: Murphy Harvey Follow up Plan Follow up with: Mary Dong APRN [Nurse Practitioner, Cardiology] - 02/15/25 10:45 am Marita Norris APRN [Referring, Medical] - 02/22/25 1:30 pm Maria D Hernández MD [Physician, Pulmonology] - 03/03/25 11:20 am Prescriptions/Medication Reconciliation: New atorvastatin 40 mg Tablet 40 mg PO HS 30 Days Qty: 30 0RF irbesartan 75 mg Tablet 75 mg PO DAILY 30 Days Qty: 30 0RF metoprolol succinate 25 mg Tablet Extended Release 24 Hr 25 mg PO DAILY 30 Days Qty: 30 0RF cefdinir 300 mg capsule 300 mg PO BID 3 Days Qty: 6 0RF Eliquis 5 mg tablet 5 mg PO BID Qty: 30 0RF Problem Reconciliation Problems Reviewed?: Yes Patient Discharge Instructions DIET: cardiac Patient Instructions: DI for Heart Attack, Intubation and Mechanical Ventilation, Pneumonia in Adults, Heart Attack, Cardiac Arrest, Atrial Fibrillation, Cardiac Catheterization, Cardioversion, Pacemaker Insertion, Acute Coronary Syndrome, Transesophageal Echocardiography, Surgical Site Infection Print Language: Italian Providers Primary Care Provider: Provider,Referral Admit Provider: Calos Otero Attending Provider: Calos Otero
[2025-02-10 11:59] LABS: Cholesterol 156 mg/dl (140-200); HDL Cholesterol 31 mg/dl (40-60); Triglycerides 130 mg/dl (30-150)
--- NOTE | 2025-02-11 10:55 | SW/DCPLANNER ---
Spoke with patient's friend on the phone. Patient's friend stated that he is doing well. Patient's friend stated that he is aware of his upcoming appointments. 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 Patient's friend stated that they have no concerns or questions at this time. Tammy Whatley
== END 2025-02-10 13:36 | disposition home or self-care (01) | DRG 275 ==
LOC: ER 15:35 → CATHLAB 15:51 → ICU 17:28
PROVIDERS: Internal Medicine; Internal Medicine Pulmonary Disease; Student in an Organized Health Care Education/Training Program; Admitting Provider Internal Medicine Adolescent Medicine; Emergency Provider Student in an Organized Health Care Education/Training Program; Visit Provider Internal Medicine Adolescent Medicine
PROC: 4A023N7 Measurement of Cardiac Sampling and Pressure, Left Heart, Percutaneous Approach (ICD-10-PCS; CPT 93452; principal; 2025-02-07 15:55)
PROC: (CPT 93312; principal; 2025-02-08 11:05)
PROC: 5A2204Z Restoration of Cardiac Rhythm, Single (ICD-10-PCS; 2025-02-08 11:05)
PROC: 0JH608Z Insertion of Defibrillator Generator into Chest Subcutaneous Tissue and Fascia, Open Approach (ICD-10-PCS; CPT 33249; principal; 2025-02-08 14:15)
DX: I49.01 Ventricular fibrillation (principal); A41.9 Sepsis, unspecified organism; I21.A1 Myocardial infarction type 2; J69.0 Pneumonitis due to inhalation of food and vomit; J18.9 Pneumonia, unspecified organism; E87.3 Alkalosis; I44.2 Atrioventricular block, complete; I46.2 Cardiac arrest due to underlying cardiac condition; I48.92 Unspecified atrial flutter; I25.10 Atherosclerotic heart disease of native coronary artery without angina pectoris; I10 Essential (primary) hypertension; I48.19 Other persistent atrial fibrillation; Z90.49 Acquired absence of other specified parts of digestive tract; Z95.3 Presence of xenogenic heart valve; Z87.891 Personal history of nicotine dependence; Z79.01 Long term (current) use of anticoagulants
CPT/HCPCS: 0223U; 31500; 36415; 36430; 36600; 51702; 70450; 70496; 70498; 71045; 71275; 80048; 80053; 80061; 80202; 82803; 82962; 83036; 83605; 83735; 84145; 84443; 84484; 85025; 85610; 85730; 86140; 87040; 87070; 87081; 87205; 87641; 92950; 92960; 93005; 93270; 93306; 93312; 93319; 94002; 94003; 94640; 94761; 97162; 97166; 99152; 99285; C1721; C1725; C1769; C1894; C1895; C1898; J0131; J0330; J0461; J0696; J1650; J1885; J2003; J2004; J2250; J2470; J2543; J2704; J3010; J3360; J3375; J7040; J7050; J7120; Q9967